=== PATIENT | female | born 1950 | race Caucasian/White ===

== ENCOUNTER 2024-07-31 09:21 | Observation (INO) ==
--- NOTE | 2024-06-25 12:29 | PAT Medication Instructions ---
Medication Instructions Date of Service June 25, 2024 Home Medications ascorbic acid (vitamin C) 500 mg tablet (Vitamin C) 500 mg PO QAM aspirin 81 mg tablet,delayed release 81 mg PO HS atorvastatin 20 mg tablet 20 mg PO QAM cephalexin 250 mg tablet 250 mg PO QAM cholecalciferol (vitamin D3) 25 mcg (1,000 unit) chewable tablet (Vitamin D3) 25 mcg PO QAM dulaglutide 0.75 mg/0.5 mL subcutaneous pen injector (Trulicity) 0.75 mg subcut WK furosemide 20 mg tablet 20 mg PO QAM insulin glargine 100 unit/mL (3 mL) subcutaneous pen (Basaglar KwikPen U-100 Insulin) 60 unit subcut HS insulin lispro 100 unit/mL subcutaneous pen (Humalog KwikPen (U-100) Insulin) 1 sliding scale dose subcut USEASDIRECTD lisinopril 10 mg tablet 10 mg PO QAM loratadine 10 mg tablet 10 mg PO QAM PRN methenamine hippurate 1 gram tablet 1 g PO BID metoprolol succinate 25 mg tablet,extended release 24 hr 25 mg PO BID nystatin 100,000 unit/gram topical powder 1 applic topical DAILY PRN omeprazole 20 mg capsule,delayed release 20 mg PO QAM ondansetron 4 mg disintegrating tablet 4 mg PO Q6H PRN prednisone 10 mg tablet 10 mg PO DIRECTED PRN spironolactone 25 mg tablet 25 mg PO BID STOP 7 days before surgery dulaglutide 0.75 mg/0.5 mL subcutaneous pen injector (Trulicity) 0.75 mg subcut WK Continue as directed prednisone 10 mg tablet 10 mg PO DIRECTED PRN(if needed) STOP taking 24 hours before surgery nystatin 100,000 unit/gram topical powder 1 applic topical DAILY PRN DO NOT take the morning of surgery ascorbic acid (vitamin C) 500 mg tablet (Vitamin C) 500 mg PO QAM cholecalciferol (vitamin D3) 25 mcg (1,000 unit) chewable tablet (Vitamin D3) 25 mcg PO QAM furosemide 20 mg tablet 20 mg PO QAM insulin lispro 100 unit/mL subcutaneous pen (Humalog KwikPen (U-100) Insulin) 1 sliding scale dose subcut USEASDIRECTD lisinopril 10 mg tablet 10 mg PO QAM loratadine 10 mg tablet 10 mg PO QAM PRN spironolactone 25 mg tablet 25 mg PO BID Take morning of surgery With a small sip of water, OTHERWISE NOTHING TO EAT OR DRINK AFTER MIDNIGHT: atorvastatin 20 mg tablet 20 mg PO QAM cephalexin 250 mg tablet 250 mg PO QAM methenamine hippurate 1 gram tablet 1 g PO BID metoprolol succinate 25 mg tablet,extended release 24 hr 25 mg PO BID omeprazole 20 mg capsule,delayed release 20 mg PO QAM ondansetron 4 mg disintegrating tablet 4 mg PO Q6H PRN(if needed) Take evening before surgery aspirin 81 mg tablet,delayed release 81 mg PO HS insulin glargine 100 unit/mL (3 mL) subcutaneous pen (Basaglar KwikPen U-100 Insulin) 60 unit subcut HS insulin lispro 100 unit/mL subcutaneous pen (Humalog KwikPen (U-100) Insulin) 1 sliding scale dose subcut USEASDIRECTD methenamine hippurate 1 gram tablet 1 g PO BID metoprolol succinate 25 mg tablet,extended release 24 hr 25 mg PO BID ondansetron 4 mg disintegrating tablet 4 mg PO Q6H PRN(if needed) spironolactone 25 mg tablet 25 mg PO BID Other Notes If you have any questions please call us at [phone] or [phone] or [phone] or [phone]
--- NOTE | 2024-07-02 10:23 | Anesthesiology Consultation ---
Date of Service July 02, 2024 Assessment & Plan (1) Encounter for pre-operative examination: - will request most recent [facility] cardiology office note Dr. Hester and await upcoming 07/15 stress test reported by patient. - will request most recent PCP office note Dr. Cline and await final clearance. - check BSG am DOS. - prednisone: patient is currently on prednisone for bilat shoulder bursitis completing medication prior to surgery. Surgeon's office made aware. - UTI: on cephalexin 500 mg tid by PCP. She states PCP wants to repeat UA 07/14/24. Surgeon's office made aware. - s/p right TKA 06/26/16 [facility]: "significant motor and sensation noted. converted to GA with MAC 3, ETT 7. Grade 1 view." SAB at L3-L4 1 attempt + PNB. - dulaglutide instructions: Patient informed at PAT visit to stop 7 days prior to surgery- voiced understanding. Patient advised to check with prescriber to see if alternative diabetic management changes recommended while holding dulaglutide- if so, patient to call back to PAT to update chart and discuss if any further preop medication instructions needed. - Outpatient joint assessment: Patient is currently scheduled for inpatient pathway. If re-evaluated and patient/surgeon requests outpatient pathway, patient is not candidate for outpatient joint program from anesthesia standpoint. Chart Review Chart Review: Pending: Refer to Additional Notes / Consult section and Patient seen in Pre Admission Testing Teaching & Discussion Pre-Anesthesia Teaching/Discussion Notes: Instructed NPO after midnight before surgery, except medications with 15 cc of water. Medication instructions provided according to the PAT guidelines. History Surgery Operation Date: 07/31/24 11:00 Proposed Procedures p Left Total Knee Arthroplasty - Derrell Moncada, Height/Weight Height: 5 ft 2 in Weight: 125.7 kg Allergies Allergy/AdvReac Type Severity Reaction Status Date / Time amoxicillin Allergy Intermediate lightheadedness Verified 07/02/24 10:40 and dizziness semaglutide [From Ozempic] AdvReac Severe nausea/vomitting/abdominal Verified 06/24/24 08:56 pain Medications Home Medications Medication Instructions Recorded Confirmed Last Taken ascorbic acid (vitamin C) 500 mg 500 mg PO QAM 06/24/24 06/24/24 Unknown tablet (Vitamin C) aspirin 81 mg tablet,delayed 81 mg PO HS 06/24/24 06/24/24 Unknown release atorvastatin 20 mg tablet 20 mg PO QAM 06/24/24 06/24/24 Unknown cephalexin 250 mg tablet 250 mg PO QAM UTI Prevention 06/24/24 06/24/24 Unknown cholecalciferol (vitamin D3) 25 25 mcg PO QAM 06/24/24 06/24/24 Unknown mcg (1,000 unit) chewable tablet (Vitamin D3) dulaglutide 0.75 mg/0.5 mL 0.75 mg subcut WK 06/24/24 06/24/24 06/21/24 subcutaneous pen injector (Trulicity) furosemide 20 mg tablet 20 mg PO QAM 06/24/24 06/24/24 Unknown insulin glargine 100 unit/mL (3 60 unit subcut HS 06/24/24 06/24/24 Unknown mL) subcutaneous pen (Basaglar KwikPen U-100 Insulin) insulin lispro 100 unit/mL 1 sliding scale dose subcut 06/24/24 06/24/24 Unknown subcutaneous pen (Humalog KwikPen USEASDIRECTD (U-100) Insulin) lisinopril 10 mg tablet 10 mg PO QAM 06/24/24 06/24/24 Unknown loratadine 10 mg tablet 10 mg PO QAM PRN seasonal allergies 06/24/24 06/24/24 Unknown methenamine hippurate 1 gram tablet 1 g PO BID 06/24/24 06/24/24 Unknown metoprolol succinate 25 mg 25 mg PO BID 06/24/24 06/24/24 Unknown tablet,extended release 24 hr nystatin 100,000 unit/gram topical 1 applic topical DAILY PRN yeast 06/24/24 06/24/24 Unknown powder infections omeprazole 20 mg capsule,delayed 20 mg PO QAM 06/24/24 06/24/24 Unknown release ondansetron 4 mg disintegrating 4 mg PO Q6H PRN n/v 06/24/24 06/24/24 Unknown tablet prednisone 10 mg tablet 10 mg PO DIRECTED PRN shoulder 06/24/24 06/24/24 Unknown bursitis spironolactone 25 mg tablet 25 mg PO BID 06/24/24 06/24/24 Unknown Additional Notes: Patient is taking cephalexin 500 mg tid started 06/27/24. Past Medical History Medical History (Updated 07/02/24 @ 10:44 by Alessia Acosta PA-C) Bursitis of shoulder bilateral - currently on prednisone Chronic back pain Degenerative disc disease Diabetes mellitus, type 2 IDDM GERD (gastroesophageal reflux disease) controlled, stable per pt History of recent steroid use d/t shoulder burisitis, finished prednisone ~06/13/24. Hyperlipidemia Hypertension controlled, stable per pt Osteoarthritis Peripheral neuropathy mild, bilateral feet Recurrent UTI last treated for an active UTI 05/31/24 & 06/13/24. started on a prevention abx from her urologist ~04/2024 that did not prevent UTI. patient is planning to get a second opinion Skipped heart beats pt unsure of name - follows with [facility] Dr Mir Ulloa. upcoming stress test Patient denies h/o stroke, seizures, heart attack, heart failure, blood clots/DVTs or blood transfusions. Exercise / Class Metabolic Activity III < 4 Walking/Shop/Light housework (ambulates with rolling walker, shortness of breath with usual activities ongoing for one year with gradual weight gain- denies chest discomfort) Past Family History Family History Other No family history of adverse response to anesthesia Past Surgical History Surgical History History of bilateral tubal ligation History of tooth extraction S/P lumbar fusion x2 Status post knee replacement right Past Anesthesia History No Hx of Anesthesia Complications and No Family Hx of Anesthesia Complications History of PONV No Hx of PONV and No Hx of Motion Sickness Social History Smoking Status: Never smoker Do You Dip or Chew Tobacco: No Hx Alcohol Use: No Hx Substance Use: No substance use type: does not use Review of Systems Patient denies chest pain, snoring, witnessed apneas, fever, chills, cough, wheezing, or palpitations. Physical Exam Vital Signs Vitals BP 130/80 P 90 TEMP 98.1 SP02 95% on RA RESP 17 Physical Patient resting comfortably in chair in no acute distress, alert and oriented, responding appropriately throughout visit Full cervical extension range of motion without pain TMD < 3 finger breadths Mallampati Score 3 Dentition: partial, denies chipped or loose teeth, caps/crowns, implants or bridges Lungs: normal respiratory effort. Good air movement, clear throughout to auscultation, no adventitious breath sounds Cardiac: regular rate and rhythm, no murmurs noted Carotid arteries: negative bruit bilat Lab Results Anesthesia Preop Results Results Anesthesia Widget: WBC 11.33 K/ul (4.8-10.8) H 07/02/24 Hgb 13.7 g/dl (12.0-16.0) 07/02/24 Hct 41.0 % (37.0-47.0) 07/02/24 Plt 252 K/uL (130-400) 07/02/24 PT 10.1 Seconds (9.0-12.0) 07/02/24 PTT 25 Seconds (21-31) 07/02/24 INR 0.9 (0.9-1.1) 07/02/24 Blood Type O Positive 07/02/24 Antibody Screen NEGATIVE 07/02/24 Testing Laboratory Results 06/03/24 SODIUM: 141 POTASSIUM: 4.3 CHLORIDE: 103 CO2: 21 BUN: 26 CREATININE: 1.2 GLUCOSE: 191 A1c: 6.3% 06/13/24 UA: small esterase, negative Electrocardiogram Date: 07/01/24 Sinus rhythm with occasional PVCs, rate 83 bpm Left axis deviation Nonspecific intraventricular block Possible anterolateral infarct, age undetermined Other Testing Chest CT 04/01/24 A few new sub 6 mm pulmonary nodules as described above. Multiple additional bilateral pulmonary nodules measuring up to approximately 10 mm are not significantly changed. coronary artery calcifications. The main pulmonary artery is dilated to 3.2 cm, which may be seen in the setting of pulmonary hypertension. Small hiatal hernia.
--- NOTE | 2024-07-30 07:09 | History & Physical Report ---
Date of Service July 30, 2024 Assessment & Plan (1) Osteoarthritis of knee: We will proceed with a left total knee arthroplasty. Postoperatively she will be started on aspirin for DVT prophylaxis and kept overnight in the hospital for postop medical management. She plans to use home health from [facility] upon discharge. History of Present Illness Chief Complaint: Osteoarthritis of the left knee. Primary Care Provider: Jasmin Guzman Marlyn Quintana is a pleasant 74-year-old female who I did a right knee replacement on in 2018. She has done well with that. Unfortunately, she is now dealing with increasing left knee pain. She has known osteoarthritis of her left knee. She has been seeing Dr. Harmon in [place] and he has been giving her injections. Unfortunately, the injections are no longer helping. That she had a conservative treatment, she has elected to proceed with a left total knee arthroplasty. Allergies Allergy/AdvReac Type Severity Reaction Status Date / Time amoxicillin Allergy Intermediate lightheadedness Verified 07/02/24 10:40 and dizziness semaglutide [From Ozempic] AdvReac Severe nausea/vomitting/abdominal Verified 06/24/24 08:56 pain Home Medications Medication Instructions Recorded Confirmed Type ascorbic acid (vitamin C) 500 mg 500 mg PO QAM 06/24/24 06/24/24 History tablet (Vitamin C) aspirin 81 mg tablet,delayed 81 mg PO HS 06/24/24 06/24/24 History release atorvastatin 20 mg tablet 20 mg PO QAM 06/24/24 06/24/24 History cephalexin 250 mg tablet 250 mg PO QAM UTI Prevention 06/24/24 06/24/24 History cholecalciferol (vitamin D3) 25 25 mcg PO QAM 06/24/24 06/24/24 History mcg (1,000 unit) chewable tablet (Vitamin D3) dulaglutide 0.75 mg/0.5 mL 0.75 mg subcut WK 06/24/24 06/24/24 History subcutaneous pen injector (Trulicity) furosemide 20 mg tablet 20 mg PO QAM 06/24/24 06/24/24 History insulin glargine 100 unit/mL (3 60 unit subcut HS 06/24/24 06/24/24 History mL) subcutaneous pen (Lobito Xiao U-100 Insulin) insulin lispro 100 unit/mL 1 sliding scale dose subcut 06/24/24 06/24/24 History subcutaneous pen (Humalog KwikPen USEASDIRECTD (U-100) Insulin) lisinopril 10 mg tablet 10 mg PO QAM 06/24/24 06/24/24 History loratadine 10 mg tablet 10 mg PO QAM PRN seasonal allergies 06/24/24 06/24/24 History methenamine hippurate 1 gram tablet 1 g PO BID 06/24/24 06/24/24 History metoprolol succinate 25 mg 25 mg PO BID 06/24/24 06/24/24 History tablet,extended release 24 hr nystatin 100,000 unit/gram topical 1 applic topical DAILY PRN yeast 06/24/24 06/24/24 History powder infections omeprazole 20 mg capsule,delayed 20 mg PO QAM 06/24/24 06/24/24 History release ondansetron 4 mg disintegrating 4 mg PO Q6H PRN n/v 06/24/24 06/24/24 History tablet prednisone 10 mg tablet 10 mg PO DIRECTED PRN shoulder 06/24/24 06/24/24 History bursitis spironolactone 25 mg tablet 25 mg PO BID 06/24/24 06/24/24 History Past Med/Surg History Problem List Encounter for pre-operative examination Osteoarthritis of knee Medical History Chronic back pain Osteoarthritis Degenerative disc disease Recurrent UTI last treated for an active UTI 05/31/24 & 06/13/24. started on a prevention abx from her urologist ~04/2024 that did not prevent UTI. patient is planning to get a second opinion GERD (gastroesophageal reflux disease) controlled, stable per pt Peripheral neuropathy mild, bilateral feet History of recent steroid use d/t shoulder burisitis, finished prednisone ~06/13/24. Diabetes mellitus, type 2 IDDM Skipped heart beats pt unsure of name - follows with [facility] Dr Mir Ulloa. upcoming stress test Hyperlipidemia Hypertension controlled, stable per pt Bursitis of shoulder bilateral - currently on prednisone Surgical History History of tooth extraction S/P lumbar fusion x2 Status post knee replacement right History of bilateral tubal ligation Family History Other No family history of adverse response to anesthesia Social History Smoking Status: Never smoker Second Hand Exposure: No; Do You Dip or Chew Tobacco: No; Tobacco Cessation Education Requested by Patient: No Hx Alcohol Use: No Hx Substance Use: No Preferred Language: Ukrainian Communication Ability: Effective Metal Coater Required: No Beliefs That Will Affect Care: None Current Living Situation: Family Current Living Situation Comment: daughter and granddaughter lives with patient Other Information That Helps Us Care for You: No Feels Safe at Home: Yes Safety Concerns: Feels Safe At This Time Assistive Devices: Cane, Glasses and Walker Assistive Devices Comment: partial upper Review of Systems All systems reviewed & are unremarkable except as noted in HPI & below. Physical Exam On physical examination of the right knee, she does have a varus deformity. She has tenderness palpation of the distal medial femoral condyle and over the medial joint line.. Constitutional WD/WN, vitals as above Eyes PERRL, conjunctivae normal, anicteric sclerae ENMT external ear and nose normal, oropharynx normal Neck trachea midline, no thyromegaly Respiratory normal respiratory effort Cardiovascular RRR, no murmur, no edema Gastrointestinal (Abdomen) normal bowel sounds, soft, nontender, no hepatosplenomegaly Psychiatric A+Ox3, euthymic affect Results & Data Results & Data Laboratory Results . Diagnostic Findings X-rays of the left knee show advanced osteoarthritis with joint space narrowing, osteophyte formation, and [id number] articulation. PG Care Time/CCT Total # of Minutes Spent Total Time Spent with Patient: Total time spent is greater than 50% in coordination of care (as documented) at patient's floor/unit and/or counseling patient: Coding Level of Care Code None Diagnoses Osteoarthritis of knee M17.10
[~2024-07-31 09:21] MED LIST: ROPIVACAINE 0.5% 5 MG/ML 30 ML VIAL ONE; ceFAZolin 2000MG 2,000 MG/15 ML SYR IV SCH
[2024-07-31] MEDS ORDERED: PROPOFOL IV EMULSION 10 MG/ML 20 ML VIAL IV ONE (10:41)
[2024-07-31] MEDS ORDERED: ONDANSETRON INJ 2 MG/ML 2 ML VIAL ONE (10:41)
[2024-07-31] MEDS ORDERED: LIDOCAINE 2% 2 ML VIAL/AMP(20MG/ML) INFIL ONE (10:41)
[2024-07-31] MEDS ORDERED: DEXAMETHASONE SOD INJ 4 MG/ML VIAL ONE (10:41)
[2024-07-31] MEDS ORDERED: fentaNYL citrate PF 100 MCG/2 ML VIAL ONE ×2 (10:42→12:48)
[2024-07-31] MEDS ORDERED: MIDAZOLAM HCL 1 MG/ML 2ML VIAL ONE (10:42)
[2024-07-31] MEDS: LR 500ML BOLUS, THEN 15ML/HR IV SCH (11:01)
[2024-07-31] MEDS: FAMOTIDINE 20 MG TAB PO SCH (11:02)
[2024-07-31] MEDS: ACETAMINOPHEN 500 MG TAB PO SCH ×2 (11:02→21:12)
[2024-07-31] MEDS: GABAPENTIN 300 MG CAP PO SCH (11:02)
[2024-07-31] MEDS: LR 60ML/HR IV SCH (11:03)
[2024-07-31] MEDS: dexAMETHasone**PF** 10 MG/ML VIAL IV SCH (11:03)
--- NOTE | 2024-07-31 11:06 | History & Physical Bridge Note ---
Date of Service July 31, 2024 History & Physical Bridge Note I have examined the patient, reviewed the History & Physical and in the interval since the performance of the History & Physical I have noted the following changes of clinical significance: no changes noted
[2024-07-31] MEDS ORDERED: HYDROmorphone INJ 1 MG/ML SYRINGE IV PRN (11:31)
[2024-07-31] MEDS ORDERED: ATROPINE SULFATE 0.1 MG/ML 10ML SYR IV PRN (11:31)
[2024-07-31] MEDS ORDERED: fentaNYL citrate PF 100 MCG/2 ML VIAL IV PRN (11:31)
[2024-07-31] MEDS ORDERED: ePHEDrine sulfate 50 MG/ML AMP IV PRN (11:31)
[2024-07-31] MEDS ORDERED: ONDANSETRON INJ 2 MG/ML 2 ML VIAL IV PRN ×2 (11:31→15:02)
[2024-07-31] MEDS: TRANEXAMIC ACID 1,000 MG **IV Pre-op IV SCH (12:02)
[2024-07-31] MEDS: ceFAZolin 3000MG 3,000 MG/72.5 ML BAG IV SCH (12:14)
[2024-07-31] MEDS: ROPIV 0.5% 246mg, Ketorolac 30mg, EPINEPHrine 0.5mg in NSS INFIL SCH (12:55)
[2024-07-31] MEDS: ORTHO JOINT ANESTHETIC ONE (12:55)
[2024-07-31] MEDS ORDERED: ROCURONIUM BROMIDE 10 MG/ML 5 ML VIAL IV ONE (12:56)
[2024-07-31] MEDS ORDERED: PHENYLEPHRINE 100MCG/ML 10ML SYR IV ONE (12:56)
[2024-07-31] MEDS ORDERED: SUGAMMADEX SODIUM 200 MG/2 ML VIAL IV ONE (13:04)
[2024-07-31] MEDS: TRANEXAMIC ACID 1,000 MG **IV Intra-op IV SCH (13:48)
--- OUTSIDE RECORDS SUMMARY | 2024-07-31 14:04 | External Medical Summary | Summary of Care ---
Author Name Unknown Organization [facility] Address [address] [place] [address] Phone [phone] Care Team Providers Care Director Data Architecture Name Role Phone Jasmin Cline MD Primary Car e Provider Encounter Details Date Type Department Care Team (Late st Contact Info) Description 07/23/2024 Telephone [facility], [place] [facility] [place], [place] [id number] Services, Scheduling [address] [place] [address] Allergies Active Allergy Reactions Criticality Noted Date Comments Semaglutide(0.25 Or 0.5mg-Dos) Nausea/vomiting 01/27/2024 Lanolin Rash Medium 03/08/2022 Fabric wool documented as of this encounter (statuses as of 07/23/2024) Medications Medication Sig Dispensed Refills Start Date End Date Status VENTOLIN HFA 108 (90 Base) MCG/ACT inhaler Inhale 2 Puffs by mouth every 4 hours as needed for Wheezing. 03/24/2019 Active atorvaSTATin (LIPITOR) 20 MG Tablet Take 1 Tablet by mouth in the morning. 03/18/2019 Active fluticasone (FLONASE) 50 MCG/ACT nasal spray Administer 1 [place] into nostril in the morning. 03/16/2019 Active aspirin 81 MG chewable tablet Take 1 Tablet by mouth at bedtime. Active Calcium Carbonate-Vitamin D 600-200 MG-UNIT Oral Tablet Take 1 Tablet by mouth in the morning. 01/03/2012 Active nystatin (NYSTOP) 543560 UNIT/GM powder Apply topically to affected area 3 times a day. Apply to breasts, abdominal fold Active Furosemide 20 MG Oral Tablet (Lasix) Take 1 Tablet by mouth in the morning. 02/08/2021 Active Lisinopril 10 MG Oral Tablet (Prinivil) Take 1 Tablet by mouth in the morning. 02/08/2021 Active Spironolactone 25 MG Oral Tablet (Aldactone) Take 1 Tablet by mouth in the morning. 02/22/2021 Active Cholecalciferol 25 MCG (1000 UT) Oral Tablet Chewable Take 1,000 Units by mouth daily. Active Metoprolol Succinate ER 25 MG Oral Tablet Extended Release 24 Hour (toPROL XL) Take 1 Tablet by mouth in the morning. 30 Tablet 11 10/17/2021 Active Famotidine 20 MG Oral Tablet (Pepcid) Take 1 Tablet by mouth 2 times a day. 60 Tablet 3 10/16/2021 Active Additional Information Patient not taking.Reported on 06/13/2024 Dulaglutide 0.75 MG/0.5ML Subcutaneous Solution Pen-injector (Scalixulicity) Inject 0.75 mg under the skin once a week. On Fridays Active Insulin Aspart 100 UNIT/ML Subcutaneous Solution Pen-injector (novoLOG) Inject 35 Units under the skin in the morning and 35 Units at noon and 35 Units in the evening. Inject with meals. Novolog scale- <151 mg/dL- 35 units 150-200 mg/dL- 36 units 201- 250 mg/dL- 37 units 251-300 mg/dL- 38 units . Active Vitamin C 1000 MG Oral Tablet Take 1 Tablet by mouth in the morning. Active Methenamine Hippurate 1 GM Oral Tablet (Hiprex) Take 1 Tablet by mouth in the morning and 1 Tablet before bedtime. 10/17/2022 Active Lidocaine 4 % External Patch (Aspercreme) Place 1 Patch over 12 hours topically on the skin daily. 30 Patch 05/13/2023 Active Insulin Glargine Solostar 100 UNIT/ML Subcutaneous Solution Pen-injector (Basaglar AishwaryaikPen) Inject under the skin. Active Metoclopramide HCl 5 MG Oral Tablet (Reglan) Take 2 Tablets by mouth every 4 hours as needed for Nausea. 30 Tablet 07/21/2024 Active Cephalexin 500 MG Oral Capsule (Keflex) Take 1 Capsule by mouth in the morning and 1 Capsule at noon and 1 Capsule in the evening and 1 Capsule before bedtime. Do all this for 5 days. 20 Capsule 07/21/2024 07/26/2024 Active documented as of this encounter (statuses as of 07/23/2024) Active Problems Problem Noted Date Diagnosed Date Acute respiratory disease due to COVID-19 virus 12/11/2022 Diastolic CHF, chronic 12/11/2022 Acute bronchitis due to Rhinovirus 10/14/2021 Dilated cardiomyopathy 10/14/2021 Diastolic congestive heart failure 10/14/2021 Acute renal failure superimp osed on stage 3a chronic kidney disease 10/14/2021 Impaired mobility and ADLs 06/08/2020 Complicated UTI (urinary tract infection) 2019 Emotional stress 12/23/2019 Cough 04/21/2019 Overview: Last Assessment & Plan: Mucinex BID as needed for cough. Push fluids. Will follow. Last Assessment & Plan: Mucinex BID as needed for cough. Push fluids. Will follow. Vitamin D deficiency 01/13/2019 Overview: Last Assessment & Plan: Continue vit D 50,000IU weekly and recheck in 8 weeks to monitor. Last Assessment & Plan: Continue vit D 50,000IU weekly and recheck in 8 weeks to monitor. Age-related osteoporosis wit hout current pathological fracture 08/14/2018 Overview: Last Assessment & Plan: Stable for oral surgery. Discussed stopping fosamax as instructed by dentist prior to procedure. Discuss potentially stopping fosamax log term depending on results of DEXA due to taking the medication for 5 years. Will follow. Last Assessment & Plan: Stable for oral surgery. Discussed stopping fosamax as instructed by dentist prior to procedure. Discuss potentially stopping fosamax log term depending on results of DEXA due to taking the medication for 5 years. Will follow. Stage 3 chronic kidney disease 08/14/2018 Overview: Last Assessment & Plan: Clinically stable. Will follow. Last Assessment & Plan: Clinically stable. Will follow. Acquired spondylolisthesis 07/01/2018 Benign essential hypertension 07/01/2018 Overview: Last Assessment & Plan: Controlled with diltiazem. Discussed eventual need to change to ACEI however will wait until BS improves and cost issues worked out with insulin. Will follow. Last Assessment & Plan: Controlled with diltiazem. Discussed eventual need to change to ACEI however will wait until BS improves and cost issues worked out with insulin. Will follow. Disease of liver 07/01/2018 Hyperlipidemia 07/01/2018 Overview: Last Assessment & Plan: Controlled. Continue lipitor daily. Will follow. Last Assessment & Plan: Controlled. Continue lipitor daily. Will follow. Idiopathic peripheral neuropathy 07/01/2018 Low back pain 07/01/2018 Nonproliferative diabetic retinopathy 07/01/2018 Overview: Last Assessment & Plan: Referred to opthalmology for f/u. Last Assessment & Plan: Referred to opthalmology for f/u. Morbid obesity 07/01/2018 Osteoarthritis of knee 07/01/2018 Peripheral venous insufficiency 07/01/2018 Type 2 diabetes mellitus wit h hyperglycemia, with long-term current use of insulin 07/01/2018 Overview: Last Assessment & Plan: Uncontrolled. Still has 2 boxes of levemir at home. Will increase to 60 U BID. We need to find a cheaper insulin as the patient continues to ration. Continue monitoring BS. Discussed red flags for emergent care. F/U with BS readings weekly. Last Assessment & Plan: Uncontrolled. Still has 2 boxes of levemir at home. Will increase to 60 U BID. We need to find a cheaper insulin as the patient continues to ration. Continue monitoring BS. Discussed red flags for emergent care. F/U with BS readings weekly. Osteoarthritis of lumbar spine 06/28/2011 documented as of this encounter (statuses as of 07/23/2024) Resolved Problems Problem Noted Date Diagnosed Date Resolved Date Acute respiratory insufficiency 12/11/2022 12/13/2022 Hypoxia 12/11/2022 12/13/2022 Intractable nausea and vomiting 06/05/2020 06/08/2020 Encounter for examination fo r normal comparison and control in clinical research program 09/16/2018 06/06/2020 Overview: DO NOT DELETE [facility] DETECT Study: Project # [id number], Dust Control Engineer: Israel Templeton, PhD. SUMMARY: Goal: Establish test characteristics (sensitivity, specificity, PPV, NPV) of a circulating tumor DNA (ctDNA)-based test for cancer. Hypothesis: Circulating tumor DNA (ctDNA) and elevated protein biomarkers (together, the marker panel) can be detected in asymptomatic individuals with early cancer. Specific Aim 1: Determine the prevalence of a positive marker panel test in a prospective clinical cohort of 10,000 asymptomatic women ages 65 to 75 years. Specific Aim 2: Determine the sensitivity, specificity, positive predictive value (PPV) and negative predictive value (NPV) of a marker panel test to identify histologically proven cancers that develop within 5-years of the marker panel evaluation. CONTACTS: During normal business hours, contact study staff at ; after hours Dust Control Engineer via the [facility] pit operator . Please contact study team before resolving/deleting from patients problem list. Study phone number: [phone]. Diagnosis changed due to Research Module. Go to Snapshot for study details. Encounter for examination fo r normal comparison and control in clinical research program 09/16/2018 07/05/2022 Overview: DO NOT DELETE - [facility] Study: Project # [id number], Dust Control Engineer: French Pierson, MS, MPH. SUMMARY: Goal: Establish test characteristics (sensitivity, specificity, PPV, NPV) of a circulating tumor DNA (ctDNA)-based test for cancer. - Hypothesis: Circulating tumor DNA (ctDNA) and elevated protein biomarkers (together, the marker panel) can be detected in asymptomatic individuals with early cancer. - Specific Aim 1: Determine the prevalence of a positive marker panel test in a prospective clinical cohort of 10,000 asymptomatic women ages 65 to 75 years. - Specific Aim 2: Determine the sensitivity, specificity, positive predictive value (PPV) and negative predictive value (NPV) of a marker panel test to identify histologically proven cancers that develop within 5-years of the marker panel evaluation. - CONTACTS: During normal business hours, contact study staff at ; after hours Dust Control Engineer via the [facility] pit operator . - Please contact study team before resolving/deleting from patients problem list. Study phone number: [phone]. Diagnosis changed due to Research Module. Go to Snapshot for study details. documented as of this encounter (statuses as of 07/23/2024) Immunizations Name Administration Dates Next Due COVID-19 mRNA, LNP-s, No Pre serve, 2-Dose Series (Moderna) 01/05/2021,12/06/2020 COVID-19, mRNA, LNP-s, PF, B ooster, 100mcg/0.5mg (Moderna) 02/18/2022,09/05/2021 Hepatitis B, 20+ yrs 08/10/2021 Pneumococcal Conjugate Vacc, 13 Valent (Prevnar) 09/18/2008 Pneumococcal Polysaccharide PPV23 (Pneumovax) 08/14/2018,08/18/2008 Seasonal Influenza Virus Vac cine, Unspecified Formulation 07/22/2018,08/23/2016,08/24/2015,10/24,07/19/2011 Seasonal Influenza, Quadriva lent, No Preserve, IM 07/03/2022 Seasonal Influenza, Trivalen t, Adjuvanted, 65+ YRS, PF, (Fluad) 08/10/2021 Varicella Zoster Vaccine (Adult) 09/22/2015 Zoster Vaccine Recombinant (Shingrix) 06/01/2019 ,03/03/2019,02/20/2019 documented as of this encounter Social History Tobacco Use Types Packs/Day Years Used Date Smoking Tobacco: Never Smokeless Tobacco: Never Alcohol Use Standard Drinks/Week Comments Not Currently 0 (1 standard drink = 0.6 oz pur e alcohol) Utilities Answer Date Recorded Do you have trouble paying y our heating, water, or electric bill? (Adult - for ages 18 years and over) Not on file 04/21/2024 Is your family able to pay t he heat, water, or electric bill? (Household - for ages 0-17 years) Not on file 04/21/2024 Does your family have access to good internet? (Household - for ages 0-17 years) Not on file 04/21/2024 Social Connections Answer Date Recorded How often do you feel lonely or isolated from those around you? (Adult - for ages 18 years and over) Not on file 04/21/2024 Sex and Gender Information Value Date Recorded Sex Assigned at Not on file Gender Identity Not on file Sexual Orientation Not on file Job Start Date Occupation Industry Not on file Not on file Not on file documented as of this encounter Functional Status Functional Status Response Date of Assess ment Are you deaf or do you have serious difficulty h earing? No 12/11/2022 Are you blind or do you have serious difficulty seeing, even when wearing glasses? No 12/11/2022 Do you have serious difficul ty walking or climbing stairs? (5 years old or older) Yes 12/11/2022 Do you have difficulty dress ing or bathing? (5 years old or older) No 12/11/2022 Because of a physical, menta l, or emotional condition, do you have difficulty doing errands alone such as visiting a doctor s office or shopping? (15 years old or older) No 12/11/19 Cognitive Status Response Date of Assessm ent Because of a physical, menta l, or emotional condition, do you have serious difficulty concentrating, remembering, or making decisions? (5 years old or older) No 12/11/2022 documented as of this encounter Miscellaneous Notes * Telephone Encounter - Aria Alvarado OSA - 07/23/2024 1:09 PM EDT Added task. documented in this encounter Plan of Treatment Upcoming Encounters Date Type Department Care Team (Late st Contact Info) Description 08/19/2024 8:30 AM EDT [facility] [address] [place] [address] Pb Harding PA-C [address] [place] [address] Health Maintenance Due Date Last Done Comments Depression Screening 1962 CKD PHOS USE SMARTSET 91087 01/20/1968 Diabetic Foot Exam 01/20/1968 Hepatitis C Screening 01/20/1968 DTap/Tdap Vaccines (1 - Tdap) 1969 Cologuard 1995 Colonoscopy 1995 Colorectal Cancer Screening 1995 Fecal Occult Blood Test 1995 Sigmoidoscopy 1995 *BISPHONATE OR OTHER ACCEPTABLE MEDICATION NEEDED FOR OSTEOPOROSIS (REFER TO SMARTSET #1146) 05/22/2020 Hepatitis B Vaccine (2 of 3 - 19+ 3-dose series) 09/07/2021 08/10/2021 DXA Scan 08/15/2023 08/15/2021, 08/20/2018 Mammogram 09/13/2023 09/13/2022, 09/04, 09/12/2021, Additional history exists COVID-19 Vaccine ( season) 2024 02/18/2022, 09/05/2021, 01/05/2021, Additional history exists Influenza Vaccine (FLU shot) (#1) 2024 07/03/2022, 07/03/2022, 08/10/2021, Additional history exists HbA1c 12/04/2024 06/03/2024, 06/0 02/2024, 01/23/2024, Additional history exists GFR 01/18/2025 07/21/2024, 05/06, 04/07/2024, Additional history exists Albumin/Creatinine Ratio 04/07/202504/07/2 024, 10/03/2023, 02/23/2023, Additional history exists Diabetic Eye Exam 05/18/2025 05/18/2024, , 11/06/2023, Additional history exists CKD HGB USE SMARTSET 29229 07/21/202507/21, 07/21/2024, 04/07/2024, Additional history exists Lipid Panel 06/03/2029 06/03/2024, 06/0 02/2024, 10/03/2023, Additional history exists Pneumococcal Vaccine: 65+ Years Completed 08/14/2018, 09/18/2008, 08/18/2008 Zoster Vaccines Completed 06/01/2019, 02/04, 02/20/2019, Additional history exists VITAMIN D LEVEL ONCE IN A LIFETIME-USE SMARTSET# 41631 Completed 06/03/2024, 06/04/2023, 08/07/2022, Additional history exists HPV (Gardasil) Vaccine Aged Out No lo nger eligible based on patient's age to complete this topic MENINGOCOCCAL (MENACTRA/MENVEO) Aged Out No longer eligible based on patient's age to complete this topic documented as of this encounter Medical Devices Not on filedocumented as of this encounter Advance Directives * Full Code (Latest Code Status on File) Date Activated Date Inactivated Comments 12/12/2022 6:42 AM 12/13/2022 3:48 PM This order ref lects the patients wishes and were consensually agreed upon. Question Answer Comments Discussion of Advance Directives occurred with: Patient Does the patient have a Living Will? Yes, not cu rrently available Does the patient have Health Care Power of Manager Biostatistics? Yes, not currently available * Full Code Date Activated Date Inactivated Comments 12/12/2022 12:28 AM 12/12/2022 6:42 AM This order re flects the patients wishes and were consensually agreed upon. Question Answer Comments Discussion of Advance Direct agapito occurred with: Not Discussed due to patient's condition Does the patient have a Living Will? No Does the patient have Health Care Power of Manager Biostatistics? No * Full Code Date Activated Date Inactivated Comments 12/12/2022 12:13 AM 12/12/2022 12:28 AM This order r eflects the patients wishes and were consensually agreed upon. Question Answer Comments Discussion of Advance Direct agapito occurred with: Not Discussed due to patient's condition Does the patient have a Living Will? No Does the patient have Health Care Power of Manager Biostatistics? No * Full Code Date Activated Date Inactivated Comments 10/14/2021 5:33 PM 10/16/2021 4:43 PM This order reflects the patients wishes and were consensually agreed upon. Question Answer Comments Discussion of Advance Directives occurred with: Patient Does the patient have a Living Will? Yes, not cu rrently available Does the patient have Health Care Power of Manager Biostatistics? Yes, not currently available * Full Code Date Activated Date Inactivated Comments 06/05/2020 2:40 PM 06/08/2020 5:16 PM This order ref lects the patients wishes and were consensually agreed upon. Question Answer Comments Discussion of Advance Directives occurred with: Patient Does the patient have a Living Will? No Does the patient have Health Care Power of Attor mauro? No Care Teams Director Data Architecture Relationship Specialty Start Date End Date Jasmin Cline MD [employer] [place] [id number] [place] [phone] PCP - General Internal Medicine 05/20/20 documented as of this encounter
--- OUTSIDE RECORDS SUMMARY | 2024-07-31 14:05 | External Medical Summary ---
Author Name Unknown Address Unknown Organization K1G:[facility] - [address] [facility] [address] Laboratory Report Ordering Provider Test Date Status PRESLEY TORRES 07/21/2024 12:23:20 Final Observation Date Value Abnormality Reference (Units ) Status BUN 07/21/2024 12:23:20 16 6-20 (mg/dL) Final Creatinine 07/21/2024 12:23:20 1.4 Above high normal 0.5-1.0 (mg/dL) Final Glomerular filtration rate/1.73 sq M.predicted [Volume Rate/Area] in Serum, Plasma or Blood by Creatinine-based formula (CKD-EPI) 07/21/2024 12:23:20 39 Below low normal >=60 (mL/min) Final eGFR is calculated based on the CKD-EPI 2020 equation. Sodium 07/21/2024 12:23:20 142 135-146 (m mol/L) Final Potassium 07/21/2024 12:23:20 5.4 Above high normal 3. 5-5.1 (mmol/L) Final Cl 07/21/2024 12:23:20 109 Above high normal 98 -107 (mmol/L) Final CO2 07/21/2024 12:23:20 26 22-32 (mmo l/L) Final Anion gap 07/21/2024 12:23:20 7 7-15 (mmol /L) Final Glucose 07/21/2024 12:23:20 135 Above high normal 70 -120 (mg/dL) Final Albumin 07/21/2024 12:23:20 3.8 3.5-4.4 (g /dL) Final AST (Aspartate aminotransferase) 07/21/2024 12:23:20 29 10-35 (U/L) Fin al Alk Phos 07/21/2024 12:23:20 65 35-130 (U/ L) Final Bilirubin, Total 07/21/2024 12:23:20 1.1 <=1 .2 (mg/dL) Final Calcium 07/21/2024 12:23:20 8.7 8.4-10.2 ( mg/dL) Final Protein 07/21/2024 12:23:20 6.9 6.0-8.3 (g /dL) Final ALT (Alanine aminotransferase) 07/21/2024 12:23:20 26 10-35 (U/L) Nura blas Performing Location [facility] - [facility] [address]
--- OUTSIDE RECORDS SUMMARY | 2024-07-31 14:05 | External Medical Summary ---
Author Name Unknown Address Unknown Organization K1G:[facility] - [address] [facility] [address] Laboratory Report Ordering Provider Test Date Status PRESLEY TORRES 07/21/2024 12:23:20 Final Observation Date Value Abnormality Reference (Units ) Status SYNC LEUKOCYTES IN BLOOD BY AUTOMATED COUNT 07/21/2024 12:23:20 10.51 4.00-10.80 (K/uL) Final Segs 07/21/2024 12:23:20 75.5 Above high normal 40.0-75.0 (%) Final Lymphs % 07/21/2024 12:23:20 12.0 Below low normal 18.0-42.0 (%) Final Monos 07/21/2024 12:23:20 10.6 1.0-11.0 (%) Final Eosinophils 07/21/2024 12:23:20 1.7 0.0-6.0 (%) Final Basos 07/21/2024 12:23:20 0.2 0.0-2.0 (%) Final Absolute Segs 07/21/2024 12:23:20 7.94 Above high normal 1.80-7.70 (K/uL) Final Lymphs, absolute 07/21/2024 12:23:20 1.26 1.00-4.80 (K/ul) Final Monos, Abs 07/21/2024 12:23:20 1.11 Above high normal 0.00-1.10 (K/uL) Final Eos, Abs 07/21/2024 12:23:20 0.18 0.00-0.70 (K/uL) Final Basos, Abs 07/21/2024 12:23:20 0.02 0.00-0.20 (K/uL) Final Performing Location [facility]ORY [facility] - [address] [facility] [address]
--- OUTSIDE RECORDS SUMMARY | 2024-07-31 14:05 | External Medical Summary ---
Author Name Unknown Address Unknown Organization K1G:[facility] - [address] [facility] [address] Laboratory Report Ordering Provider Test Date Status PRESLEY TORRES 07/21/2024 11:59:48 Final Observation Date Value Abnormality Reference (Units ) Status Glucose Point of Care 07/21/2024 11:59:48 135 Above high normal 70-120 (mg/dL) Final Performing Location [facility] [address] [facility] [address]
--- OUTSIDE RECORDS SUMMARY | 2024-07-31 14:05 | External Medical Summary | Summary of Care ---
Author Name Unknown Organization [facility] Address [address] [place] [address] Phone [phone] Care Team Providers Care Parking Assistant Name Role Phone Jasmin Cline MD Primary Car e Provider Reason for Visit * Reason Comments Outpatient Testing Encounter Details Date Type Department Care Team ([facility] st Contact Info) Description 07/17/2024 11:00 AM EDT Laboratory Laboratory Patient Service [address] [id number] [address] Kidney disease, chronic, stage III (GFR 30-59 ml/min) (FORMERLY [facility]) Allergies Active Allergy Reactions Criticality Noted Date Comments Semaglutide(0.25 Or 0.5mg-Dos) Nausea/vomiting 01/27/2024 Lanolin Rash Medium 03/08/2022 Fabric wool documented as of this encounter (statuses as of 07/17/2024) Medications Medication Sig Dispensed Refills Start Date End Date Status VENTOLIN HFA 108 (90 Base) MCG/ACT inhaler Inhale 2 Puffs by mouth every 4 hours as needed for Wheezing. 03/24/2019 Active atorvaSTATin (LIPITOR) 20 MG Tablet Take 1 Tablet by mouth in the morning. 03/18/2019 Active fluticasone (FLONASE) 50 MCG/ACT nasal spray Administer 1 [place] into nostril in the morning. 03/16/2019 Active aspirin 81 MG chewable tablet Take 1 Tablet by mouth at bedtime. Active Calcium Carbonate-Vitamin D 600-200 MG-UNIT Oral Tablet Take 1 Tablet by mouth in the morning. 01/03/2012 Active nystatin (NYSTOP) 436123 UNIT/GM powder Apply topically to affected area [...] 06/13/2024 Dulaglutide 0.75 MG/0.5ML Subcutaneous Solution Pen-injector ([employer] Inject 0.75 mg under the skin once [...] (Basaglar AishwaryaikPen) Inject under the skin. Active documented as of this encounter (statuses as of 07/17/2024) Active Problems Problem Noted Date Diagnosed Date [...] as of this encounter (statuses as of 07/17/2024) Resolved Problems Problem Noted Date Diagnosed Date Resolved Date Acute respiratory insufficiency 12/11/2022 12/13/2022 Hypoxia 12/11/2022 12/13/2022 Intractable nausea and vomiting 06/05/2020 06/08/2020 Encounter for examination fo r normal comparison and control in clinical research program 09/16/2018 06/06/2020 Overview: DO NOT DELETE [facility] DETECT Study: Project # [id number], Parquetry Floor Layer: Israel Templeton, PhD. SUMMARY: Goal: Establish test [...] contact study staff at ; after hours Parquetry Floor Layer via the [facility] hospital kettle fry cook operator . Please contact study team before resolving/deleting from patients problem list. Study phone number: [phone]. Diagnosis changed due to Research Module. Go to [employer] for study details. Encounter for examination fo r normal comparison and control in clinical research program 09/16/2018 07/05/2022 Overview: DO NOT DELETE - [facility] Study: Project # [id number], Parquetry Floor Layer: French Pierson, MS, MPH. SUMMARY: Goal: Establish [...] contact study staff at ; after hours Parquetry Floor Layer via the [facility] kettle fry cook operator . - Please contact study team before resolving/deleting from patients problem list. Study phone number: [phone]. Diagnosis changed due to Research Module. Go to [employer] for study details. documented as of this encounter (statuses as of 07/17/2024) Immunizations Name Administration Dates Next Due COVID-19 [...] (15 years old or older) No 12/11/19 23 Cognitive Status Response Date of Assessm ent Because of a physical, menta l, or emotional condition, do you have serious difficulty concentrating, remembering, or making decisions? (5 years old or older) No 12/11/2022 documented as of this encounter Plan of Treatment Upcoming Encounters Date Type Department Care Team (Late st Contact Info) Description 08/19/2024 8:30 AM EDT [facility] [address] [place] [address] Pb Harding PA-C [address] [place] [address] Pending Results Name Type Priority Associated Diagnoses Date /Time URINALYSIS, REFLEX TO CULTURE (NOT FOR NEUTROPENIC PATIENTS) Lab Routine Kidney disease, chronic, stage III (GFR 30-59 ml/min) ([facility]) 07/17/2024 10:59 AM EDT URINALYSIS, REFLEX TO CULTURE (CUP ONLY) Lab Routine Kidney disease, chronic, stage III (GFR 30-59 ml/min) ([facility]) 07/17/2024 10:59 AM EDT URINALYSIS, REFLEX TO CULTURE Lab Routine Kidney disease, chronic, stage III (GFR 30-59 ml/min) ([facility]) 07/17/2024 10:59 AM EDT Health Maintenance Due Date Last Done Comments Depression Screening 1962 CKD PHOS USE SMARTSET 64186 01/20/1968 Diabetic Foot Exam 01/20/1968 Hepatitis C [...] 2024 07/03/2022, 07/03/2022, 08/10/2021, Additional history exists GFR 12/04/2024 06/03/2024, 06/0 02/2024, 01/23/2024, Additional history exists HbA1c 12/04/2024 06/03/2024, 06/0 02/2024, 01/23/2024, Additional history exists Albumin/Creatinine Ratio 04/07/2025 024, 10/03/2023, 02/23/2023, Additional history exists CKD HGB USE SMARTSET 65398 04/07/202504/07, 04/07/2024, 10/03/2023, Additional history exists Diabetic Eye Exam 05/18/2025 05/18/2024, , 11/06/2023, Additional history exists Lipid Panel 06/03/2029 06/03/2024, 06/0 02/2024, 10/03/2023, Additional history exists Pneumococcal Vaccine: 65+ Years Completed 08/14/2018, 09/18/2008, 08/18/2008 Zoster Vaccines Completed 06/01/2019, 02/04, 02/20/2019, Additional history exists VITAMIN D LEVEL ONCE IN A LIFETIME-USE SMARTSET# [id number] Completed 06/03/2024, 06/04/2023, 08/07/2022, Additional history exists HPV (Gardasil) Vaccine Aged Out No lo nger eligible based on patient's age to complete this topic MENINGOCOCCAL (MENACTRA/MENVEO) Aged Out No longer eligible based on patient's age to complete this topic documented as of this encounter Medical Devices Not on filedocumented as of this encounter Visit Diagnoses Diagnosis Kidney disease, chronic, stage III (GFR 30-59 ml/min) (HCC) Chronic kidney disease, Stage III (moderate) documented in this encounter Advance Directives * Full Code [...] the patient have Health Care Power of Sales Department Supervisor? Yes, not currently available * Full Code Date Activated Date Inactivated Comments 12/12/2022 12:28 AM 12/12/2022 6:42 AM This order re flects the patients wishes and were consensually agreed upon. Question Answer Comments Discussion of Advance Direct agapito occurred with: Not Discussed due to patient's condition Does the patient have a Living Will? No Does the patient have Health Care Power of Sales Department Supervisor? No * Full Code Date Activated Date Inactivated Comments 12/12/2022 12:13 AM 12/12/2022 12:28 AM This order r eflects the patients wishes and were consensually agreed upon. Question Answer Comments Discussion of Advance Direct agapito occurred with: Not Discussed due to patient's condition Does the patient have a Living Will? No Does the patient have Health Care Power of Sales Department Supervisor? No * Full Code Date Activated Date Inactivated Comments 10/14/2021 5:33 PM 10/16/2021 4:43 PM This order reflects the patients wishes and were consensually agreed upon. Question Answer Comments Discussion of Advance Directives occurred with: Patient Does the patient have a Living Will? Yes, not cu rrently available Does the patient have Health Care Power of Sales Department Supervisor? Yes, not currently available * Full Code Date Activated Date Inactivated Comments 06/05/2020 2:40 PM 06/08/2020 5:16 PM This order ref lects the patients wishes and were consensually agreed upon. Question Answer Comments Discussion of Advance Directives occurred with: Patient Does the patient have a Living Will? No Does the patient have Health Care Power of Attor mauro? No Care Teams Parking Assistant Relationship Specialty Start Date End Date Jasmin Cline MD [facility] [place] [address] [place] [phone] PCP - General Internal Medicine 05/20/20 documented as of this encounter
--- OUTSIDE RECORDS SUMMARY | 2024-07-31 14:05 | External Medical Summary | Summary of Care ---
Author Name Unknown Organization [facility] Address [address] [facility] [address] Phone [phone] Care Team Providers Care Food And Beverage Operations Manager Name Role Phone Jasmin Cline MD Primary Car e Provider Reason for Visit * Reason Onset Date Comments [facility]: Maintenance 07/22/2024 Encounter Details Date Type Department Care Team (Late st Contact Info) Description 07/22/2024 Telephone [facility], [facility] [address] [facility] [place] [phone] Sayra Chung, SURVEILLANCE DUAL RATE OFFICER [address] [facility] [place] [address] [facility]: Maintenance Allergies Active Allergy Reactions Criticality Noted Date Comments Semaglutide(0.25 Or 0.5mg-Dos) Nausea/vomiting 01/27/2024 Lanolin Rash Medium 03/08/2022 Fabric wool documented as of this encounter (statuses as of 07/22/2024) Medications Medication Sig Dispensed Refills Start Date End Date Status VENTOLIN HFA 108 (90 Base) MCG/ACT inhaler Inhale 2 Puffs by mouth every 4 hours as needed for Wheezing. 03/24/2019 Active atorvaSTATin (LIPITOR) 20 MG Tablet Take 1 Tablet by mouth in the morning. 03/18/2019 Active fluticasone (FLONASE) 50 MCG/ACT nasal spray Administer 1 [place] into nostril in the morning. 03/16/2019 Active aspirin 81 MG chewable tablet Take 1 Tablet by mouth at bedtime. Active Calcium Carbonate-Vitamin D 600-200 MG-UNIT Oral Tablet Take 1 Tablet by mouth in the morning. 01/03/2012 Active nystatin (NYSTOP) 258542 UNIT/GM powder Apply topically to affected area [...] 06/13/2024 Dulaglutide 0.75 MG/0.5ML Subcutaneous Solution Pen-injector (Solarmassulicity) Inject 0.75 mg under the skin once [...] as of this encounter (statuses as of 07/22/2024) Active Problems Problem Noted Date Diagnosed Date [...] as of this encounter (statuses as of 07/22/2024) Resolved Problems Problem Noted Date Diagnosed Date Resolved Date Acute respiratory insufficiency 12/11/2022 12/13/2022 Hypoxia 12/11/2022 12/13/2022 Intractable nausea and vomiting 06/05/2020 06/08/2020 Encounter for examination fo r normal comparison and control in clinical research program 09/16/2018 06/06/2020 Overview: DO NOT DELETE [facility] DETECT Study: Project # [id number], Career Development Engineer: Israel Templeton, PhD. SUMMARY: Goal: Establish [...] contact study staff at ; after hours Career Development Engineer via the [facility] hospital muffle operator . Please contact study team before resolving/deleting from patients problem list. Study phone number: [phone]. Diagnosis changed due to Research Module. Go to [employer] for study details. Encounter for examination fo r normal comparison and control in clinical research program 09/16/2018 07/05/2022 Overview: DO NOT DELETE [facility] DETECT Study: Project # [id number], Career Development Engineer: French Pierson, MS, MPH. SUMMARY: Goal: [...] contact study staff at ; after hours Career Development Engineer via the [facility] hospital muffle operator . - Please contact study team before resolving/deleting from patients problem list. Study phone number: [phone]. Diagnosis changed due to Research Module. Go to [employer] for study details. documented as of this encounter (statuses as of 07/22/2024) Immunizations Name Administration Dates Next Due COVID-19 [...] encounter Miscellaneous Notes * Telephone Encounter - Sayra Chung LPN - 07/22/2024 10:28 AM EDT Lilian Mccall was referred as a potential candidate for enrollment for [facility]. A review of this chart was completed and: Lilian meets criteria for [facility]. Jump to Initiation Referring care team was notified via : [employer] [facility] communication documented in this encounter Plan of Treatment Upcoming Encounters Date Type Department Care Team (Late st Contact Info) Description 08/19/2024 8:30 AM EDT Office Visit Orthopaedics, [facility] [address] [place] [address] Pb Harding PA-C [address] [place] [address] Health Maintenance Due Date Last Done Comments Depression Screening 1962 CKD PHOS USE SMARTSET 77160 01/20/1968 Diabetic Foot Exam 01/20/1968 Hepatitis C [...] 01/23/2024, Additional history exists GFR 01/18/2025 07/21/2024, 07/3 11/2023, 04/07/2024, Additional history exists Albumin/Creatinine Ratio 04/07/202504/07/2 024, 10/03/2023, 02/23/2023, Additional history exists Diabetic Eye Exam 05/18/2025 05/18/2024, , 11/06/2023, Additional history exists CKD HGB USE SMARTSET 10868 07/21/202507/21, 07/21/2024, 04/07/2024, Additional history exists Lipid Panel 06/03/2029 06/03/2024, 06/0 02/2024, 10/03/2023, Additional history exists Pneumococcal Vaccine: 65+ Years Completed 08/14/2018, 09/18/2008, 08/18/2008 Zoster Vaccines Completed 06/01/2019, 02/04, 02/20/2019, Additional history exists VITAMIN D LEVEL ONCE IN A LIFETIME-USE SMARTSET# 28750 Completed 06/03/2024, 06/04/2023, 08/07/2022, Additional history exists [...] the patient have Health Care Power of Yard General Car Supervisor? Yes, not currently available * Full Code Date Activated Date Inactivated Comments 12/12/2022 12:28 AM 12/12/2022 6:42 AM This order re flects the patients wishes and were consensually agreed upon. Question Answer Comments Discussion of Advance Direct agapito occurred with: Not Discussed due to patient's condition Does the patient have a Living Will? No Does the patient have Health Care Power of Yard General Car Supervisor? No * Full Code Date Activated Date Inactivated Comments 12/12/2022 12:13 AM 12/12/2022 12:28 AM This order r eflects the patients wishes and were consensually agreed upon. Question Answer Comments Discussion of Advance Direct agapito occurred with: Not Discussed due to patient's condition Does the patient have a Living Will? No Does the patient have Health Care Power of Yard General Car Supervisor? No * Full Code Date Activated Date Inactivated Comments 10/14/2021 5:33 PM 10/16/2021 4:43 PM This order reflects the patients wishes and were consensually agreed upon. Question Answer Comments Discussion of Advance Directives occurred with: Patient Does the patient have a Living Will? Yes, not cu rrently available Does the patient have Health Care Power of Yard General Car Supervisor? Yes, not currently available * Full Code Date Activated Date Inactivated Comments 06/05/2020 2:40 PM 06/08/2020 5:16 PM This order ref lects the patients wishes and were consensually agreed upon. Question Answer Comments Discussion of Advance Directives occurred with: Patient Does the patient have a Living Will? No Does the patient have Health Care Power of Attor mauro? No Care Teams Food And Beverage Operations Manager Relationship Specialty Start Date End Date Jasmin Cline MD [facility] [place] [address] [place] [phone] PCP - General Internal Medicine 05/20/20 documented as of this encounter
--- OUTSIDE RECORDS SUMMARY | 2024-07-31 14:05 | External Medical Summary | Summary of Care ---
Author Name Unknown Organization [facility] Address [address] [facility] [place] [address] Phone [phone] Care Team Providers Care Master Automotive Technician Name Role Phone Jasmin Cline MD Primary Car e Provider Encounter Details Date Type Department Care Team (Late st Contact Info) Description 07/22/2024 Population Health External Data Unspecified Department Allergies Active Allergy Reactions Criticality Noted Date [...] (FLONASE) 50 MCG/ACT nasal spray Administer 1 [place] into nostril in the morning. 03/16/2019 Active aspirin 81 MG chewable tablet Take 1 Tablet by mouth at bedtime. Active Calcium Carbonate-Vitamin D 600-200 MG-UNIT Oral Tablet Take 1 Tablet by mouth in the morning. 01/03/2012 Active nystatin (NYSTOP) 247213 UNIT/GM powder Apply topically to affected area [...] 06/13/2024 Dulaglutide 0.75 MG/0.5ML Subcutaneous Solution Pen-injector (Nasuniulicity) Inject 0.75 mg under the skin once [...] Solostar 100 UNIT/ML Subcutaneous Solution Pen-injector (Basaglar KwikPen) Inject under the skin. Active Metoclopramide HCl [...] 8 weeks to monitor. Age-related osteoporosis wit dionicio current pathological fracture 08/14/2018 Overview: Last Assessment [...] program 09/16/2018 06/06/2020 Overview: DO NOT DELETE [facility] DETECT Study: Project # [id number], Scrap Stripper Hand: Israel Templeton, PhD. SUMMARY: Goal: Establish test [...] contact study staff at ; after hours Scrap Stripper Hand via the [facility] dinkey operator slate . Please contact study team before resolving/deleting from patients problem list. Study phone number: [phone]. Diagnosis changed due to Research Module. Go to [employer] for study details. Encounter for examination fo r normal comparison and control in clinical research program 09/16/2018 07/05/2022 Overview: DO NOT DELETE - [facility] Study: Project # [id number], Scrap Stripper Hand: French Pierson, MS, MPH. SUMMARY: Goal: Establish [...] contact study staff at ; after hours Scrap Stripper Hand via the [facility] dinkey operator slate . - Please contact study team before resolving/deleting from patients problem list. Study phone number: [phone]. Diagnosis changed due to Research Module. Go [...] Description 08/19/2024 8:30 AM EDT [facility] [address] [place] [address] Pb Harding PA-C [address] [place] [address] Health Maintenance Due Date Last Done Comments Depression Screening 1962 CKD PHOS USE SMARTSET 44518 01/20/1968 Diabetic Foot Exam 01/20/1968 Hepatitis C [...] 05/06, 04/07/2024, Additional history exists Albumin/Creatinine Ratio 04/07/2025 024, 10/03/2023, 02/23/2023, Additional history exists Diabetic Eye Exam 05/18/2025 05/18/2024, , 11/06/2023, Additional history exists CKD HGB USE SMARTSET 54575 07/21/202507/21, 07/21/2024, 04/07/2024, Additional history exists Lipid Panel 06/03/2029 06/03/2024, 06/0 02/2024, 10/03/2023, Additional history exists Pneumococcal Vaccine: 65+ Years Completed 08/14/2018, 09/18/2008, 08/18/2008 Zoster Vaccines Completed 06/01/2019, 02/04, 02/20/2019, Additional history exists VITAMIN D LEVEL ONCE IN A LIFETIME-USE SMARTSET# 22386 Completed 06/03/2024, 06/04/2023, 08/07/2022, Additional history exists [...] the patient have Health Care Power of Aerial Tram Operator? Yes, not currently available * Full Code Date Activated Date Inactivated Comments 12/12/2022 12:28 AM 12/12/2022 6:42 AM This order re flects the patients wishes and were consensually agreed upon. Question Answer Comments Discussion of Advance Direct agapito occurred with: Not Discussed due to patient's condition Does the patient have a Living Will? No Does the patient have Health Care Power of Aerial Tram Operator? No * Full Code Date Activated Date Inactivated Comments 12/12/2022 12:13 AM 12/12/2022 12:28 AM This order r eflects the patients wishes and were consensually agreed upon. Question Answer Comments Discussion of Advance Direct agapito occurred with: Not Discussed due to patient's condition Does the patient have a Living Will? No Does the patient have Health Care Power of Aerial Tram Operator? No * Full Code Date Activated Date Inactivated Comments 10/14/2021 5:33 PM 10/16/2021 4:43 PM This order reflects the patients wishes and were consensually agreed upon. Question Answer Comments Discussion of Advance Directives occurred with: Patient Does the patient have a Living Will? Yes, not cu rrently available Does the patient have Health Care Power of Aerial Tram Operator? Yes, not currently available * Full Code Date Activated Date Inactivated Comments 06/05/2020 2:40 PM 06/08/2020 5:16 PM This order ref lects the patients wishes and were consensually agreed upon. Question Answer Comments Discussion of Advance Directives occurred with: Patient Does the patient have a Living Will? No Does the patient have Health Care Power of Attor mauro? No Care Teams Master Automotive Technician Relationship Specialty Start Date End Date Jasmin Cline MD [facility] [place] [phone] PCP - General Internal Medicine 05/20/20 documented as of this encounter
--- OUTSIDE RECORDS SUMMARY | 2024-07-31 14:05 | External Medical Summary | Summary of Care ---
Author Name Unknown Organization [facility] Address [address] [place] [address] Phone [phone] Care Team Providers Care Piece Presser Name Role Phone Jasmin Cline MD Primary Car e Provider Reason for Visit * Reason Onset Date Comments [facility]: Engagement 07/22/2024 Encounter Details Date Type Department Care Team (Late st Contact Info) Description 07/22/2024 Telephone [facility], [place] [address] [place], [place] [address]JHO[place] [phone] Services, Scheduling [address] [place] [address] [facility]: Engagement Allergies Active Allergy Reactions Criticality Noted Date [...] (FLONASE) 50 MCG/ACT nasal spray Administer 1 [place] into nostril in the morning. 03/16/2019 Active aspirin 81 MG chewable tablet Take 1 Tablet by mouth at bedtime. Active Calcium Carbonate-Vitamin D 600-200 MG-UNIT Oral Tablet Take 1 Tablet by mouth in the morning. 01/03/2012 Active nystatin (NYSTOP) 078430 UNIT/GM powder Apply topically to affected area [...] 06/13/2024 Dulaglutide 0.75 MG/0.5ML Subcutaneous Solution Pen-injector (SomaLogic) Inject 0.75 mg under the skin once [...] program 09/16/2018 06/06/2020 Overview: DO NOT DELETE Ronald Cambiatta ANA Study: Project # [id number], Marketing Administrative Assistant: Israel Templeton, PhD. SUMMARY: Goal: Establish test [...] contact study staff at ; after hours Marketing Administrative Assistant via the [facility] flange machine operator . Please contact study team before resolving/deleting from patients problem list. Study phone number: [phone]. Diagnosis changed due to Research Module. Go to Snapshot for study details. Encounter for examination fo r normal comparison and control in clinical research program 09/16/2018 07/05/2022 Overview: DO NOT DELETE - Ronald Cambiatta DETECT Study: Project # [id number], Marketing Administrative Assistant: French Pierson, MS, MPH. SUMMARY: Goal: Establish [...] contact study staff at ; after hours Marketing Administrative Assistant via the [facility] flange machine operator . - Please contact study team before resolving/deleting from patients problem list. Study phone number: [phone]. Diagnosis changed due to Research Module. Go [...] Telephone Encounter - Aria Alvarado OSA - 07/22/2024 2:33 PM EDT Pt is to have knee surgery next week, would like a call back the of August. documented in this encounter Plan of Treatment Upcoming Encounters Date Type Department Care Team (Late st Contact Info) Description 08/19/2024 8:30 AM EDT Office Visit Orthopaedics, [facility] [address] [place] [address] Pb Harding PA-C [address] [place] [address] Health Maintenance Due Date Last Done Comments Depression Screening 1962 CKD PHOS USE SMARTSET 15380 01/20/1968 Diabetic Foot Exam 01/20/1968 Hepatitis C [...] Additional history exists CKD HGB USE SMARTSET 41787 07/21/202507/21, 07/21/2024, 04/07/2024, Additional history exists Lipid Panel 06/03/2029 06/03/2024, 06/0 02/2024, 10/03/2023, Additional history exists Pneumococcal Vaccine: 65+ Years Completed 08/14/2018, 09/18/2008, 08/18/2008 Zoster Vaccines Completed 06/01/2019, 02/04, 02/20/2019, Additional history exists VITAMIN D LEVEL ONCE IN A LIFETIME-USE SMARTSET# [id number] Completed 06/03/2024, 06/04/2023, 08/07/2022, Additional history exists [...] the patient have Health Care Power of Wire Bound Box Machine Helper? Yes, not currently available * Full Code Date Activated Date Inactivated Comments 12/12/2022 12:28 AM 12/12/2022 6:42 AM This order re flects the patients wishes and were consensually agreed upon. Question Answer Comments Discussion of Advance Direct agapito occurred with: Not Discussed due to patient's condition Does the patient have a Living Will? No Does the patient have Health Care Power of Wire Bound Box Machine Helper? No * Full Code Date Activated Date Inactivated Comments 12/12/2022 12:13 AM 12/12/2022 12:28 AM This order r eflects the patients wishes and were consensually agreed upon. Question Answer Comments Discussion of Advance Direct agapito occurred with: Not Discussed due to patient's condition Does the patient have a Living Will? No Does the patient have Health Care Power of Wire Bound Box Machine Helper? No * Full Code Date Activated Date Inactivated Comments 10/14/2021 5:33 PM 10/16/2021 4:43 PM This order reflects the patients wishes and were consensually agreed upon. Question Answer Comments Discussion of Advance Directives occurred with: Patient Does the patient have a Living Will? Yes, not cu rrently available Does the patient have Health Care Power of Wire Bound Box Machine Helper? Yes, not currently available * Full Code Date Activated Date Inactivated Comments 06/05/2020 2:40 PM 06/08/2020 5:16 PM This order ref lects the patients wishes and were consensually agreed upon. Question Answer Comments Discussion of Advance Directives occurred with: Patient Does the patient have a Living Will? No Does the patient have Health Care Power of Attor mauro? No Care Teams Piece Presser Relationship Specialty Start Date End Date Jasmin Clnie MD [employer] [place] [address] [place] [id number] PCP - General Internal Medicine 05/20/20 documented as of this encounter
--- OUTSIDE RECORDS SUMMARY | 2024-07-31 14:05 | External Medical Summary | Summary of Care ---
Author Name Unknown Organization [facility] Address [address] [place] [address] Phone [phone] Care Team Providers Care Pass Worker Name Role Phone Jasmin Cline MD Primary Car e Provider Reason for Visit * Reason Comments Vomiting N/V/D since yesterda y, UTI also * Auth/Cert Specialty Diagnoses / Procedures Referred By Contac t Referred To Contact [facility] [address] [place] [address] Phone: [phone] Emergency Medicine [facility] [address] [place] [address] Referral ID Status Reason Start Date Expiration Date Visits Re quested Visits Authorized [id number] Encounter Details Date Type Department Care Team (Late st Contact Info) Description 07/21/2024 11:39 AM EDT - 07/21/2024 3:28 PM EDT Emergency [facility] ([facility]) [address] [place] [address] Israel Figueroa, [address] [address] Nausea and vomiting, unspecified vomiting type (Primary Dx) Discharge Disposition: Home - Self Care Allergies Active Allergy Reactions Criticality Noted Date [...] (FLONASE) 50 MCG/ACT nasal spray Administer 1 [place] into nostril in the morning. 03/16/2019 Active aspirin 81 MG chewable tablet Take 1 Tablet by mouth at bedtime. Active Calcium Carbonate-Vitamin D 600-200 MG-UNIT Oral Tablet Take 1 Tablet by mouth in the morning. 01/03/2012 Active nystatin (NYSTOP) 226042 UNIT/GM powder Apply topically to affected area [...] 06/13/2024 Dulaglutide 0.75 MG/0.5ML Subcutaneous Solution Pen-injector ([employer]) Inject 0.75 mg under the skin once [...] Glargine Solostar 100 UNIT/ML Subcutaneous Solution Pen-injector ([employer] KwikPen) Inject under the skin. Active Metoclopramide [...] 09/16/2018 06/06/2020 Overview: DO NOT DELETE [facility] DETECT Study: Project # [id number], Customer Service Officer: Israel Templeton, PhD. SUMMARY: Goal: Establish test [...] contact study staff at ; after hours Customer Service Officer via the [facility] paper rewinder operator . Please contact study team before resolving/deleting from patients problem list. Study phone number: [phone]. Diagnosis changed due to Research Module. Go to Snapshot for study details. Encounter for examination fo r normal comparison and control in clinical research program 09/16/2018 07/05/2022 Overview: DO NOT DELETE - [facility] DETECT Study: Project # [id number], Customer Service Officer: French Pierson, MS, MPH. SUMMARY: Goal: Establish [...] contact study staff at ; after hours Customer Service Officer via the [facility] hospital paper rewinder operator . - Please contact study team before resolving/deleting from patients problem list. Study phone number: [phone]. Diagnosis changed due to Research Module. Go [...] on file documented as of this encounter Last Filed Vital Signs Vital Sign Reading Time Taken Comments Blood Pressure 128/69 07/21/2024 3:00 PM EDT Pulse 95 07/21/2024 3:00 PM EDT Temperature 37 C (98.6 F) 07/21/2024 11: 28 AM EDT Respiratory Rate 24 07/21/2024 3:00 PM EDT Oxygen Saturation 98% 07/21/2024 2:00 PM EDT Inhaled Oxygen Concentration - - Weight 127.8 kg (281 lb 11.2 oz) 2023 11:43 AM EDT Height 157.5 cm (5' 2") 07/21/2024 11:4 3 AM EDT Body Mass Index 51.52 07/21/2024 11:43 AM EDT documented in this encounter Functional Status Functional Status Response [...] No 12/11/2022 documented as of this encounter ED Notes * Israel Figueroa, DO - 07/21/2024 11:51 AM EDT HISTORY OF PRESENT ILLNESS Lilian Mccall is a 74 year old female who presents to the ED for evaluation of Vomiting (N/V/D since yesterday, UTI also). The patient was seen at 07/21/24 1151. According to the patient she reports recently she has been experiencing acute some constipation and was taking multiple stool softeners sinus laxatives at home. She states she then started to have diarrhea and looser stools. She states yesterday into today she has taken Imodium with some improvement of her looser stools. She states today she also had an episode of nausea and subsequent vomiting. She denies any associated significant pain fevers or chills. The patient was recently diagnosed with a urinary tract infection by her primary care physician and was started on antibiotics today. Due to her vomiting she was advised to cometo the ER for further evaluation by her primary care physician. The patient's allergies, past history, and medications were reviewed. PHYSICAL EXAM Initial Vitals (see all): BP 144/76 | Pulse 106 | Resp 18 | Temp 98.6 | O2 97 %, Room Air, None | Weight 127.78 kg | Height 157.5 cm | BMI 51.52 kg/m2 Initial Pain Assessment (see all): 0 (no pain)/10 ([facility] Adult Scale 0-10) Physical Exam Vitals and nursing note reviewed. Constitutional: General: She is not in acute distress. Appearance: She is well-developed. HENT: Head: Normocephalic and atraumatic. Eyes: Conjunctiva/sclera: Conjunctivae normal. Cardiovascular: Rate and Rhythm: Normal rate and regular rhythm. Heart sounds: No murmur heard. Pulmonary: Effort: Pulmonary effort is normal. No respiratory distress. Breath sounds: Normal breath sounds. Abdominal: Palpations: Abdomen is soft. Tenderness: There is no abdominal tenderness. Musculoskeletal: General: No swelling. Cervical back: Neck supple. Skin: General: Skin is warm and dry. Capillary Refill: Capillary refill takes less than 2 seconds. Neurological: Mental Status: She is alert. Psychiatric: Mood and Affect: Mood normal. PROCEDURES AND TREATMENTS ED Orders | ED Results MEDICAL DECISION MAKING Nursing notes and vital signs were reviewed. ED Course as of 07/21/24 1525 Tue Jul 21, 2024 1256 CBC unremarkable [DM] 1320 CMP generally unremarkable [DM] 1320 CT abdomen pelvis shows no signs acute intra-abdominal pathology by my interpretation. Radiology read shows possible renal cyst and ovarian cyst. [DM] 1521 Lipase(!): <5 [DM] ED Course User Index [DM] Israel Figueroa DO Differential Diagnoses Based on my history, physical exam, and evaluation, the differential includes, but is not limited, to the following diagnoses: Cholelithiasis, gastritis, electrolyte abnormality. Patient found to be well appearing in no significant distress with a benign abdominal exam. Given patient's reported history further laboratory studies were performed. These were found to be generally unremarkable. CT abdomen pelvis was also performed that showed no signs of acute abdominal pathology. Patient made aware of CT findings. Patient given further symptomatic care to continue at home and reasons to return to the ER. Also reported that her urinalysis for infection at her primary care doctor's office. She was unsure if her primary care doctor son in an antibiotic, so I sent an antibiotic for further treatment of a potential UTI. Amount and/or Complexity of Data Reviewed Labs: ordered. Decision-making details documented in ED Course. Radiology: ordered. Risk Prescription drug management. Clinical Impressions Nausea and vomiting, unspecified vomiting type Disposition Discharged. The patient's condition at disposition was: stable. Discharge Medications Disp Refills Start End Metoclopramide HCl 5 MG Oral Tablet (Reglan) 30 Tablet 0 07/21/2024 -- Sig - Route: Take 2 Tablets by mouth every 4 hours as needed for Nausea. - Oral Class: ePrescribing Renewals Renewal requests to authorizing provider (Israel Figueroa DO) <b>prohibited</b> Cephalexin 500 MG Oral Capsule (Keflex) 20 Capsule 0 07/21/2024 07/26/2024 Sig - Route: Take 1 Capsule by mouth in the morning and 1 Capsule at noon and 1 Capsule in the evening and 1 Capsule before bedtime. Do all this for 5 days. - Oral Class: ePrescribing Renewals Renewal requests to authorizing provider (Israel Figueroa DO) <b>prohibited</b> Israel Figueroa * Lilian Sharif RN - 07/21/2024 11:45 AM EDT Patient A&Ox4, arrived with daughter after not feel well since last Saturday. Had a stress test last week for pre op knee surgery, after that felt like she was getting a UTI. UTI symptoms include frequency and foul smell. PCP check for UTI Saturday but patient did not get a call back until yesterday to start on a antibiotic today. Since yesterday patient has felt worse with diarrhea and nausea. Patient did have immodium 1 tab yesterday and 1 tab today but still having diarrhea. Nausea continued into today and did vomit several times today, took some zofran and that did not help. Patient denied a fever, no chills or sweats. documented in this encounter Miscellaneous Notes * Pt Handout (on AVS) - Israel Figueroa DO - 07/21/2024 3:23 PM EDT [id number] Vomiting (Adult) Vomiting is a common symptom that may be due to different causes. These include gastroenteritis (stomach flu), food poisoning, and gastritis. Other more serious causes of vomiting may be hard to diagnose early in the illness. That's why it's important to watch for the warning signs listed below. The main danger from repeated vomiting is dehydration. This is because of the loss of water and minerals from the body. When this occurs, your body fluids must be replaced. Home care If symptoms are severe, rest at home for the next 24 hours. Because your symptoms may be from an infection, wash your hands often and well. Use soap and clean, running water or alcohol-based director of elementary education to keep from spreading the infection to others. Wash your hands for at least 20 seconds. Scrub all surfaces of your hands, including between your fingers and under your fingernails each time you wash. Humming the Happy Birthday song twice whileyou wash is an easy way to make sure you've washed for 20 seconds. Wash your hands after using the toilet, before and after preparing food, before eating food, after changing a diaper, cleaning a wound, caring for a sick person, and blowing your nose, coughing, or sneezing. You should also wash your hands after caring for someone who is sick, touching pet food,or treats, and touching an animal, or animal waste. You may use acetaminophen or NSAID medicines such as ibuprofen or naproxen to control fever, unless another medicine was prescribed. Talk with your provider before using these medicines if you have chronic liver or kidney disease or ever had a stomach ulcer or digestive bleeding. Never give aspirin to anyone younger than 18 who is ill with a fever. It may cause severe liver damage. Don't use NS AID medicines if you are already taking one for another condition such as arthritis or take aspirinfor heart disease or after a stroke. Don't use tobacco or drink alcohol. These may make your symptoms worse. If you have trouble stopping either substance, ask your provider for treatment resources. If medicines for vomiting were prescribed, take as directed. Tell your provider if they don't work within the expected time period. Once vomiting stops, then follow these guidelines: During the first 12 to 24 hours, follow the diet below: Fruit juices. Apple, grape juice, clear fruit drinks, and electrolyte replacement drinks. Beverages. Water, soft drinks without caffeine; mineral water (plain or flavored), and decaffeinated tea and coffee. Soups. Clear broth and bouillon. Desserts. Plain gelatin, ice pops, and fruit juice bars. As you feel better, you may add 6 to 8 ounces of yogurt per day. During the next 24 hours you may add the following to the above: Hot cereal, plain toast, bread, rolls, and crackers Plain noodles, rice, mashed potatoes, and chicken noodle or rice soup Unsweetened canned fruit such as applesauce, bananas. Don't have pineapple or citrus. Limit caffeine and chocolate. No spices or seasonings except salt. During the next 24 hours: Gradually go back to your normal diet, as you feel better and your symptoms lessen. Follow-up care Follow up with your healthcare provider as advised. When to seek medical advice Call your healthcare provider right away if any of these occur: Constant right-sided lower belly pain or increasing general belly pain Continued vomiting (unable to keep liquids down) for 24 hours Vomiting blood or what looks like coffee grounds Swollen belly Frequent diarrhea (more than 5 times a day), or blood (red or black color) or mucus in diarrhea Peeing less than usual or extreme thirst Weakness, dizziness, or fainting Unusually drowsy or confused Fever of 100.4F (38C) oral or higher, or as directed by your provider Yellow color of the eyes or skin Other symptoms get worse or you have new symptoms Last Reviewed Date: 09/04/202119993127-9054 [employer]. All rights reserved. This information is not intended as a substitute for professional medical care. Always follow your healthcare professional's instructions. * ED Investigation Lieutenant Note - Ajit Velázquez TECH - 07/21/2024 12:12 PM EDT BSG 135 documented in this encounter Plan of Treatment Upcoming Encounters Date Type Department Care Team (Late st Contact Info) Description 08/19/2024 8:30 AM EDT [facility] [address] [place] [address] Pb Harding PA-C [address] [place] [address] Health Maintenance Due Date Last Done Comments Depression Screening 1962 CKD PHOS USE SMARTSET 89982 01/20/1968 Diabetic Foot Exam 01/20/1968 Hepatitis C [...] Additional history exists CKD HGB USE SMARTSET 56609 07/21/202507/21, 07/21/2024, 04/07/2024, Additional history exists Lipid Panel 06/03/2029 06/03/2024, 06/0 02/2024, 10/03/2023, Additional history exists Pneumococcal Vaccine: 65+ Years Completed 08/14/2018, 09/18/2008, 08/18/2008 Zoster Vaccines Completed 06/01/2019, 02/04, 02/20/2019, Additional history exists VITAMIN D LEVEL ONCE IN A LIFETIME-USE SMARTSET# [id number] Completed 06/03/2024, 06/04/2023, 08/07/2022, Additional history exists HPV (Gardasil) Vaccine Aged Out No lo nger eligible based on patient's age to complete this topic MENINGOCOCCAL (MENACTRA/MENVEO) Aged Out No longer eligible based on patient's age to complete this topic documented as of this encounter Medical Devices Not on filedocumented as of this encounter Procedures Procedure Name Priority Date/Time Associated Diagnosis Comments CT ABD/PELVIS W IV CONTRAST - WO ORAL CONTRAST STAT 07/21/2024 12:31 PM EDT EXTRA GREEN TOP WITH GEL Routine 07/21/2024 12:23 PM EDT EXTRA TUBES Routine 07/21/2024 12:23 PM EDT DIFFERENTIAL, AUTOMATED STAT 07/21/2024 12:23 PM EDT COMPREHENSIVE METABOLIC PANEL STAT 07/21/2024 12:23 PM EDT CBC STAT 07/21/2024 12:23 PM EDT LIPASE STAT 07/21/2024 12:23 PM EDT CBC STAT 07/21/2024 12:23 PM EDT GLUCOSE METER, POINT OF CARE BARRON 07/21/2024 11:59 AM EDT documented in this encounter Results * CT ABD/PELVIS W IV CONTRAST - WO ORAL CONTRAST (07/21/2024 12:31 PM EDT) Anatomical Region Laterality Modality Body, Abdomen, Pelvis Computed T omography 07/21/2024 12:2 7 PM EDT Impressions 07/21/2024 1:15 PM EDT IMPRESSION: 1. Bilateral ovarian cysts, largest measuring 5.7 cm on the right. 2. No bowel obstruction or focal inflammatory process throughout the gastrointestinal tract. 3. Small hiatal hernia. 4. Tiny cyst within the right kidney measuring 9 mm, stable in the interval and too small to accurately characterize. Otherwise unremarkable abdominal viscera. THIS DOCUMENT HAS BEEN ELECTRONICALLY SIGNED BY SUSSY HANDY MD Narrative 07/21/2024 1:15 PM EDT PROCEDURE INFORMATION: Exam: CT Abdomen And Pelvis With Contrast Exam date and time: 07/21/2024 12:27 PM Age: 74 years old Clinical indication: Nausea and vomiting; Additional info: Nausea vomiting diarrhea TECHNIQUE: Imaging protocol: Computed tomography of the abdomen and pelvis with contrast. Radiation optimization: All CT scans at this facility use at least one of these dose optimization techniques: automated exposure control; mA and/or kV adjustment per patient size (includes targeted exams where dose is matched to clinical indication); or iterative reconstruction. Contrast material: ISOVUE 370; Contrast volume: 80 ml; Contrast route: INTRAVENOUS (IV); COMPARISON: 1. CT ABD/PELVIS W IV CON 03/09/2022 2:[address] dated 03/09/2022. 3. CT dated 12/16/2020. FINDINGS: Lungs: Mild bilateral lower lobe atelectasis, slightly more significant on the left. Multiple left lower lobe pulmonary nodules, largest measuring 9.4 mm, unchanged in the interval. Heart: Mild cardiomegaly with coronary artery calcifications. Diaphragm: Small hiatal hernia. The stomach is decompressed, otherwise unremarkable. Anteverted uterus. Liver: Normal. No mass. Gallbladder and biliary ducts: Normal. No calcified stones. No ductal dilation. Pancreas: Normal. No ductal dilation. Spleen: Normal. No splenomegaly. Adrenal glands: Left adrenal nodule measuring 2.2 x 1.9 cm, stable on comparison to report dated 12/16/2020 and therefore most compatible with benign process. Normal right adrenal gland. Kidneys and ureters: Right lower renal pole low-attenuation structure measuring 9 mm, stable when compared to CT dated 03/09/2022, likely cysts and too small to accurately characterize. Otherwise normal right kidney. Normal left kidney. Stomach and bowel: See "Diaphragm" finding. Appendix: No evidence of appendicitis. Intraperitoneal space: Unremarkable. No free air. No significant fluid collection. Vasculature: Calcified atherosclerotic disease of aorta. Lymph nodes: Unremarkable. No enlarged lymph nodes. Urinary bladder: Unremarkable as visualized. Reproductive: Right adnexal cyst measuring 5.7 x 4.1 cm. Left adnexal cyst measuring 1.8 x 1.7 cm. Bones/joints: Diffuse osteopenia/osteoporosis. Posterior fusion from L2 through S1. Grade 1 anterolisthesis of L5 on S1 (7.6 mm), unchanged since exam 03/09/2022. Vacuum phenomenon at T12-L1. Vdrwxvpb-vm-xuoetk compression fracture of T11. Soft tissues: Unremarkable. Procedure Note Sussy Handy MD - 07/21/2024 PROCEDURE INFORMATION: Exam: CT Abdomen And Pelvis With Contrast Exam date and time: 07/21/2024 12:27 PM Age: 74 years old Clinical indication: Nausea and vomiting; Additional info: Nausea vomiting diarrhea TECHNIQUE: Imaging protocol: Computed tomography of the abdomen and pelvis withcontrast. Radiation optimization: All CT scans at this facility use at least one ofthese dose optimization techniques: automated exposure control; mA and/or kV adjustment per patient size (includes targeted exams where dose is matchedto clinical indication); or iterative reconstruction. Contrast material: ISOVUE 370; Contrast volume: 80 ml; Contrast route: INTRAVENOUS (IV); COMPARISON: 1. CT ABD/PELVIS W IV CON 03/09/2022 2:[address] dated 03/09/2022. 3. CT dated 12/16/2020. FINDINGS: Lungs: Mild bilateral lower lobe atelectasis, slightly more significant onthe left. Multiple left lower lobe pulmonary nodules, largest measuring 9.4mm, unchanged in the interval. Heart: Mild cardiomegaly with coronary artery calcifications. Diaphragm: Small hiatal hernia. The stomach is decompressed, otherwise unremarkable. Anteverted uterus. Liver: Normal. No mass. Gallbladder and biliary ducts: Normal. No calcified stones. No ductaldilation. Pancreas: Normal. No ductal dilation. Spleen: Normal. No splenomegaly. Adrenal glands: Left adrenal nodule measuring 2.2 x 1.9 cm, stable on comparison to report dated 12/16/2020 and therefore most compatible withbenign process. Normal right adrenal gland. Kidneys and ureters: Right lower renal pole low-attenuation structuremeasuring 9 mm, stable when compared to CT dated 03/09/2022, likely cysts and toosmall to accurately characterize. Otherwise normal right kidney. Normal leftkidney. Stomach and bowel: See "Diaphragm" finding. Appendix: No evidence of appendicitis. Intraperitoneal space: Unremarkable. No free air. No significant fluid collection. Vasculature: Calcified atherosclerotic disease of aorta. Lymph nodes: Unremarkable. No enlarged lymph nodes. Urinary bladder: Unremarkable as visualized. Reproductive: Right adnexal cyst measuring 5.7 x 4.1 cm. Left adnexal cyst measuring 1.8 x 1.7 cm. Bones/joints: Diffuse osteopenia/osteoporosis. Posterior fusion from I7ezxcavu S1. Grade 1 anterolisthesis of L5 on S1 (7.6 mm), unchanged since exam 03/09/2022. Vacuum phenomenon at T12-L1. Rytaquco-st-ikopfp compression fracture of T11. Soft tissues: Unremarkable. IMPRESSION IMPRESSION: 1. Bilateral ovarian cysts, largest measuring 5.7 cm on the right. 2. No bowel obstruction or focal inflammatory process throughout the gastrointestinal tract. 3. Small hiatal hernia. 4. Tiny cyst within the right kidney measuring 9 mm, stable in theinterval and too small to accurately characterize. Otherwise unremarkable abdominal viscera. THIS DOCUMENT HAS BEEN ELECTRONICALLY SIGNED BY SUSSY HANDY MD Israel Figueroa DO RAD CT * EXTRA GREEN TOP WITH GEL (07/21/2024 12:23 PM EDT) Blood Venous blood specimen / Unknown 07/21/2024 12:23 PM EDT 07/21/2024 12:29 PM EDT Israel Figueroa DO LAB BLOOD ORDERABL ES [facility] [place] [address] [place] [address] * (ABNORMAL) DIFFERENTIAL, AUTOMATED (07/21/2024 12:23 PM EDT) WBC 10.51 4.00 - 10.80 K/uL 07/21/2024 12:37 PM EDT LAB[facility]ATORY [facility] Neutrophils % 75.5(H) 40.0 - 75.0 % 07/21/2024 12:37 PM EDT [facility]ORY [facility] Lymphocytes % 12.0(L) 18.0 - 42.0 % 07/21/2024 12:37 PM EDT [facility] Monocytes % 10.6 1.0 - 11.0 % 07/21/2024 12:37 PM EDT [facility] Eosinophils % 1.7 0.0 - 6.0 % 07/21/2024 12:37 PM EDT [facility] Basophils % 0.2 0.0 - 2.0 % 07/21/2024 12:37 PM EDT LAB[facility] Absolute Neutrophils 7.94(H) 1.80 - 7.70 K/uL 07/21/2024 12:37 PM EDT [facility] Absolute Lymphocytes 1.26 1.00 - 4.80 K/ul 07/21/2024 12:37 PM EDT [facility] Absolute Monocytes 1.11(H) 0.00 - 1.10 K/uL 07/21/2024 12:37 PM EDT [facility] Absolute Eosinophils 0.18 0.00 - 0.70 K/uL 07/21/2024 12:37 PM EDT [facility] Absolute Basophils 0.02 0.00 - 0.20 K/uL 07/21/2024 12:37 PM EDT [facility] Blood Venous blood specimen / Unknown Venipuncture / Unknown 07/21/2024 12:23 PM EDT 07/21/2024 12:28 PM EDT Israel Figueroa DO LAB BLOOD ORDERABL ES [facility] [place] [address] [place] [address] * CBC (07/21/2024 12:23 PM EDT) WBC 10.51 4.00 - 10.80 K/uL 07/21/2024 12:37 PM EDT [facility] RBC 3.84 3.85 - 5.15 M/uL 07/21/2024 12:37 PM EDT [facility] HGB 12.9 12.0 - 15.3 g/dL 07/21/2024 12:37 PM EDT [facility] HCT 39.0 36.0 - 45.2 % 07/21/2024 12:37 PM EDT [facility] MCV 101.6 81.5 - 97.5 fL 07/21/2024 12:37 PM EDT [facility] MCH 33.6 27.0 - 34.0 pg 07/21/2024 12:37 PM EDT LAB[facility] MCHC 33.1 32.0 - 36.0 g/dL 07/21/2024 12:37 PM EDT [facility] RDW 13.6 11.5 - 15.5 % 07/21/2024 12:37 PM EDT [facility] PLT 185 140 - 400 K/uL 07/21/2024 12:37 PM EDT [facility] MPV 9.8 6.6 - 11.1 fL 07/21/2024 12:37 PM EDT [facility] Blood Venous blood specimen / Unknown Venipuncture / Unknown 07/21/2024 12:23 PM EDT 07/21/2024 12:28 PM EDT Israel Figueroa LAB BLOOD ORDERABL ES Performing Organization Address City/[facility]/ZIP Co de Phone Number LABORATORY [address] [address] * (ABNORMAL) LIPASE (07/21/2024 12:23 PM EDT) [facility] Lipase <5(L) 13 - 60 U/L 07/21/2024 3:16 PM EDT [facility] Blood Venous blood specimen / Unknown Venipuncture / Unknown 07/21/2024 12:23 PM EDT 07/21/2024 12:28 PM EDT Israel Figueroa LAB BLOOD ORDERABL ES Performing Organization Address City/[facility]/ZIP Co de Phone Number LABORATORY [address] [address] * (ABNORMAL) COMPREHENSIVE METABOLIC PANEL (07/21/2024 12:23 PM EDT) [facility] BUN - POCT 16 6 - 20 mg/dL 07/21/2024 1:10 PM EDT LAB[facility]ATORY [facility] CREATININE - POCT 1.4(H) 0.5 - 1.0 mg/dL 07/21/2024 1:10 PM EDT LAB[facility]ATORY [facility] EGFR 39(L) >=60 mL/min 07/21/2024 1:10 PM EDT [facility] Comment:eGFR is calculated b ased on the CKD-EPI 2020 equation. SODIUM - POCT 142 135 - 146 mmol/L 07/21/2024 1:10 PM EDT LAB[facility]ATORY [facility] POTASSIUM - POCT 5.4(H) 3.5 - 5.1 mmol/L 07/21/2024 1:10 PM EDT LAB[facility]ATORY [facility] CHLORIDE - POCT 109(H) 98 - 107 mmol/L 07/21/2024 1:10 PM EDT LABORATORY SH CO2 - POCT 26 22 - 32 mmol/L 07/21/2024 1:10 PM EDT [facility] ANION GAP - POCT 7 7 - 15 mmol/L 07/21/2024 1:10 PM EDT [facility] GLUCOSE - POCT 135(H) 70 - 120 mg/dL 07/21/2024 1:10 PM EDT [facility] Albumin 3.8 3.5 - 4.4 g/dL 07/21/2024 1:10 PM EDT [facility] AST 29 10 - 35 U/L 07/21/2024 1:10 PM EDT [facility] Alkaline Phosphatase 65 35 - 130 U/L 07/21/2024 1:10 PM EDT [facility] Bilirubin, Total 1.1 <=1.2 mg/dL 07/21/2024 1:10 PM EDT [facility] CALCIUM - POCT 8.7 8.4 - 10.2 mg/dL 07/21/2024 1:10 PM EDT [facility] Protein, Total 6.9 6.0 - 8.3 g/dL 07/21/2024 1:10 PM EDT [facility] ALT 26 10 - 35 U/L 07/21/2024 1:10 PM EDT [facility] Blood Venous blood specimen / Unknown Venipuncture / Unknown 07/21/2024 12:23 PM EDT 07/21/2024 12:28 PM EDT Israel Figueroa DO LAB BLOOD ORDERABL ES [facility]AT[facility] [address] [place] [address] * (ABNORMAL) GLUCOSE METER, POINT OF CARE (07/21/2024 11:59 AM EDT) GLUCOSE - POCT 135(H) 70 - 120 mg/dL 07/21/2024 12:04 PM EDT [facility] Blood Whole blood specimen / Unknown 07/21/2024 11:59 AM EDT 07/21/2024 12:04 PM EDT Israel Figueroa DO LAB POINT OF CARE TEST DOCKED DEVICE UNSOLICITED RESULTS [facility]AT[facility] [place] [address] [place] [address] documented in this encounter Visit Diagnoses Diagnosis Nausea and vomiting, unspecified vomiting type- Primary documented in this encounter Administered Medications Inactive Administered Medications - up to 3 most recent administrations Medication Order MAR Action Action Date Dose Rate Site Iopamidol (Isovue 370) inj 80 mL 80 mL, Intravenous, ONCE, On Sat07/21/24 at 1315, For 1 dose, Radiology Medication Routing (Non-IR) Given 07/21/2024 1:15 PM EDT 80 mL metoclopramide (Reglan) inj 10 mg 10 mg, IV Push, ONCE, On Sat07/21/24 at 1245, For 1 dose Given 07/21/2024 12:26 PM EDT 10 mg NSS 0.9% 1,000 mL bolus infusion Peripheral IV, at 1,000 mL/hr Administer over 60 Minutes, Administer entire volume within 60 minutes or less., ONCE, 1 dose, On Sat07/21/24 at 1245 KVO 07/21/2024 1:47 PM EDT 5 mL/hr Restarted 07/21/2024 1:42 PM EDT 1000 mL/hr Restarted 07/21/2024 12:35 PM EDT 1000 mL/hr documented in this encounter Active and Recently Administered Medications Times are shown in EDT. Scheduled Medication Order 07/19/2024 07/20/2024 07/21/2024 Iopamidol (Isovue 370) inj 80 mL (COMPLETED) 80 mL, Intravenous, ONCE, On Sat07/21/24 at 1315, For 1 dose, Radiology Medication Routing (Non-IR) 1315 (Given - Provid er: Shyam Hernandez RT) metoclopramide (Reglan) inj 10 mg (COMPLETED) 10 mg, IV Push, ONCE, On Sat07/21/24 at 1245, For 1 dose 1226 (Given - Provid er: Kang Bernard RN) NSS 0.9% 1,000 mL bolus infusion (COMPLETED) Peripheral IV, at 1,000 mL/hr Administer over 60 Minutes, Administer entire volume within 60 minutes or less., ONCE, 1 dose, On Sat07/21/24 at 1245 1229 (New Bag - Prov ider: Kang Bernard RN)1229 (Paused - Provider: Rebeka Rossi RN)1235 (Restarted - Provider: Rebeka Rossi RN)1335 (Paused - Provider: Rebeka Rossi RN)1342 (Restarted - Provider: Rebeka Rossi RN)1347 (KVO - Provider: Rebeka Rossi RN)1358 (Stopped - Provider: Rebeka Rossi RN) documented in this encounter Advance Directives * [...] patient have Health Care Power of Sales Support Rep? Yes, not currently available * Full Code Date Activated Date Inactivated Comments 12/12/2022 12:28 AM 12/12/2022 6:42 AM This order re flects the patients wishes and were consensually agreed upon. Question Answer Comments Discussion of Advance Direct agapito occurred with: Not Discussed due to patient's condition Does the patient have a Living Will? No Does the patient have Health Care Power of Sales Support Rep? No * Full Code Date Activated Date Inactivated Comments 12/12/2022 12:13 AM 12/12/2022 12:28 AM This order r eflects the patients wishes and were consensually agreed upon. Question Answer Comments Discussion of Advance Direct agapito occurred with: Not Discussed due to patient's condition Does the patient have a Living Will? No Does the patient have Health Care Power of Sales Support Rep? No * Full Code Date Activated Date Inactivated Comments 10/14/2021 5:33 PM 10/16/2021 4:43 PM This order reflects the patients wishes and were consensually agreed upon. Question Answer Comments Discussion of Advance Directives occurred with: Patient Does the patient have a Living Will? Yes, not cu rrently available Does the patient have Health Care Power of Sales Support Rep? Yes, not currently available * Full Code Date Activated Date Inactivated Comments 06/05/2020 2:40 PM 06/08/2020 5:16 PM This order ref lects the patients wishes and were consensually agreed upon. Question Answer Comments Discussion of Advance Directives occurred with: Patient Does the patient have a Living Will? No Does the patient have Health Care Power of Attor mauro? No Care Teams Pass Worker Relationship Specialty Start Date End Date Jasmin Cline MD [employer] [place] [address] [place], [place] [phone] PCP - General Internal Medicine 05/20/20 documented as of this encounter
--- OUTSIDE RECORDS SUMMARY | 2024-07-31 14:05 | External Medical Summary ---
Author Name Unknown Address Unknown Organization [id number]:[facility] [place] [address] [facility] [address] Laboratory Report Ordering Provider Test Date Status ROMULO CHO 07/17/2024 10:59:53 Final Observation Date Value Abnormality Reference (Units ) Status Color of Urine by Auto 07/17/2024 10:59:53 Light Yellow Colorless, Light Yellow, Yellow, Dark Yellow Final Clarity, Urine 07/17/2024 10:59:53 Slightly Cloudy Abnormal Clear Final Glucose [Mass/volume] in Urine by Automated test strip 07/17/2024 10:59:53 Negative Negative (mg/dL) Final Bilirubin.total [Presence] in Urine by Automated test strip 07/17/2024 10:59:53 Negative Negative Final Ketones [Mass/volume] in Urine by Automated test strip 07/17/2024 10:59:53 Negative Negative (mg/dL) Final Specific gravity, Urine 07/17/2024 10:59:53 1.014 1.003-1.030 Final Hemoglobin [Presence] in Urine by Automated test strip 07/17/2024 10:59:53 Negative Negative Final pH, Urine 07/17/2024 10:59:53 7.0 5.0-7.5 (Units) Final Protein [Mass/volume] in Urine by Automated test strip 07/17/2024 10:59:53 Negative Negative (mg/dL) Final Urobilinogen [Mass/volume] in Urine by Automated test strip 07/17/2024 10:59:53 Normal Normal (mg/dL) Final Nitrite [Presence] in Urine by Automated test strip 07/17/2024 10:59:53 Negative Negative Final Leukocyte esterase [Presence] in Urine by Automated test strip 07/17/2024 10:59:53 Large Abnormal Negative Final RBC, Urine 07/17/2024 10:59:53 0-2 0-2 (/HPF) Final WBC, Urine 07/17/2024 10:59:53 10-19 Abnormal 0-2 (/HPF) Final Bacteria [#/area] in Urine sediment by Microscopy high power field 07/17/2024 10:59:53 101-150 Abnormal 0-25 (/HPF) Final Epithelial cells.squamous [#/area] in Urine sediment by Microscopy high power field 07/17/2024 10:59:53 Many Abnormal None (/HPF) Final Epithelial cells.renal [#/area] in Urine sediment by Microscopy high power field 07/17/2024 10:59:53 1-4 Abnormal None (/HPF) Final CULTURE, URINE - [facility] 07/17/2024 10:59:53 Final Quantitative urine culture t o be performed Performing Location [facility] [place] [address] [facility] [address]
--- OUTSIDE RECORDS SUMMARY | 2024-07-31 14:05 | External Medical Summary ---
Author Name Unknown Address Unknown Organization [id number]:LABORATORY [facility] - [address] [place] [id number] Laboratory Report Ordering Provider Test Date Status PRESLEY TORRES 07/21/2024 12:23:20 Final Observation Date Value Abnormality Reference (Units ) Status Lipase 07/21/2024 12:23:20 <5 Below low normal 13- 60 (U/L) Final Performing Location LABORATORY [facility] - [address] [place] [phone]
--- OUTSIDE RECORDS SUMMARY | 2024-07-31 14:05 | External Medical Summary ---
Author Name Unknown Address Unknown Organization [id number]:LABORATORY [facility] - [address] [place] [phone] Laboratory Report Ordering Provider Test Date Status PRESLEY TORRES 07/21/2024 12:23:20 Final Observation Date Value Abnormality Reference (Units ) Status WBC, Total 07/21/2024 12:23:20 10.51 4.00-10.8 0 (K/uL) Final RBC 07/21/2024 12:23:20 3.84 3.85-5.15 (M/uL) Final Hemoglobin 07/21/2024 12:23:20 12.9 12.0-15.3 (g/dL) Final HCT 07/21/2024 12:23:20 39.0 36.0-45.2 (%) Final MCV 07/21/2024 12:23:20 101.6 81.5-97.5 (fL) Final MCH 07/21/2024 12:23:20 33.6 27.0-34.0 (pg) Final MCHC 07/21/2024 12:23:20 33.1 32.0-36.0 (g/dL) Final RDW 07/21/2024 12:23:20 13.6 11.5-15.5 (%) Final Platelets 07/21/2024 12:23:20 185 140-400 (K /uL) Final MPV 07/21/2024 12:23:20 9.8 6.6-11.1 ( fL) Final Performing Location LABORATORY [facility] - [address] [facility] [phone]
--- OUTSIDE RECORDS SUMMARY | 2024-07-31 14:06 | External Medical Summary ---
Author Name Unknown Address Unknown Organization K01:[facility] [place] [address] [place] [id number] Laboratory Report Ordering Provider Test Date Status ROMULO CHO 07/17/2024 10:59:53 Final Observation Date Value Abnormality Reference (Units) Status Bacteria identified in Specimen by Culture 07/17/2024 10:59:53 No significant growth Final Test: Culture, Urine, Quanti tative
Specimen Source: Urine, Clean Catch
Specimen Type: Urine
Specimen Date: 07/17/2024 1059
Result Date: 07/18/2024 1442
Result Status: Final result
Resulting Lab: [facility] [place]
[address]
[place] [id number]

CULTURE

No significant growth

null Performing Location [facility] [place] [address] [facility] [place] [address]
--- OUTSIDE RECORDS SUMMARY | 2024-07-31 14:06 | External Medical Summary | Summary of Care ---
Author Name Unknown Organization [facility] Address [address] [address] Phone [phone] Care Team Providers Care Delivery Analyst Name Role Phone Jasmin Cline MD Primary Car e Provider Reason for Referral * Evaluate & Treat - Unlimited Visits (Within 10 days (routine)) - Authorized Specialty Diagnoses / Procedures Referred By Joseph porras Referred To Contact Orthopaedic Surgery / Orthopedics Diagnoses Bursitis of left shoulder Roberta Ballard PA-C [address] [place] [address] Referral ID Status Reason Start Date Expiration Date Visits Requested Visits Authorized [id number] Authorized Specialty Services Required 07/05/[phone] Question Answer Referral Priority Within 10 days (routine) Where should this appointment be scheduled? [facility] What body part is the patient being seen for? Shoulder What condition is the patient being seen for? Sprain/Strain/Tear/Other Reason for Visit * Reason Comments Other Bursitis in left melina ulder Encounter Details Date Type Department Care Team (Late st Contact Info) Description 07/05/2024 9:50 AM EDT [place] [place] [address] Roberta Ballard PA-C [address] [place] [address] Bursitis of left shoulder* Allergies Active Allergy Reactions Criticality Noted Date Comments Semaglutide(0.25 Or 0.5mg-Dos) Nausea/vomiting 01/27/2024 Lanolin Rash Medium 03/08/2022 Fabric wool documented as of this encounter (statuses as of 07/08/2024) Medications Medication Sig Dispensed Refills Start Date End Date Status VENTOLIN HFA 108 (90 Base) MCG/ACT inhaler Inhale 2 Puffs by mouth every 4 hours as needed for Wheezing. 03/24/2019 Active atorvaSTATin (LIPITOR) 20 MG Tablet Take 1 Tablet by mouth in the morning. 03/18/2019 Active fluticasone (FLONASE) 50 MCG/ACT nasal spray Administer 1 [place] into nostril in the morning. 03/16/2019 Active aspirin 81 MG chewable tablet Take 1 Tablet by mouth at bedtime. Active Calcium Carbonate-Vitamin D 600-200 MG-UNIT Oral Tablet Take 1 Tablet by mouth in the morning. 01/03/2012 Active nystatin (NYSTOP) 307606 UNIT/GM powder Apply topically to affected area [...] 06/13/2024 Dulaglutide 0.75 MG/0.5ML Subcutaneous Solution Pen-injector ([place]) Inject 0.75 mg under the skin once [...] (Basaglar KwikPen) Inject under the skin. Active predniSONE 20 MG Oral Tablet (Deltasone)Indicati ons:Bursitis of left shoulder Take 2 Tablets by mouth in the morning for 5 days. 10 Tablet 07/05/2024 07/10/2024 Active documented as of this encounter (statuses as of 07/08/2024) Active Problems Problem Noted Date Diagnosed Date [...] as of this encounter (statuses as of 07/08/2024) Resolved Problems Problem Noted Date Diagnosed Date Resolved Date Acute respiratory insufficiency 12/11/2022 12/13/2022 Hypoxia 12/11/2022 12/13/2022 Intractable nausea and vomiting 06/05/2020 06/08/2020 Encounter for examination fo r normal comparison and control in clinical research program 09/16/2018 06/06/2020 Overview: DO NOT DELETE [facility] DETECT Study: Project # [id number], Cotton Washer: Israel Templeton, PhD. SUMMARY: Goal: Establish test [...] contact study staff at ; after hours Cotton Washer via the [facility] tin whiz machine operator . Please contact study team before resolving/deleting from patients problem list. Study phone number: [phone]. Diagnosis changed due to Research Module. Go to Snapshot for study details. Encounter for examination fo r normal comparison and control in clinical research program 09/16/2018 07/05/2022 Overview: DO NOT DELETE [facility] DETECT Study: Project # [id number], Cotton Washer: French Pierson, MS, MPH. SUMMARY: Goal: Establish [...] contact study staff at ; after hours Cotton Washer via the [facility] hospital tin whiz machine operator . - Please contact study team before resolving/deleting from patients problem list. Study phone number: [phone]. Diagnosis changed due to Research Module. Go to Snapshot for study details. documented as of this encounter (statuses as of 07/08/2024) Immunizations Name Administration Dates Next Due COVID-19 [...] Sign Reading Time Taken Comments Blood Pressure 107/69 07/05/2024 10:09 AM EDT Pulse 91 07/05/2024 10:09 AM EDT Temperature 36.3 C (97.3 F) 07/05/2024 10:09 AM E DT Respiratory Rate 16 07/05/2024 10:09 AM EDT Oxygen Saturation 95% 07/05/2024 10:09 AM EDT Inhaled Oxygen Concentration - - Weight - - Height - - Body Mass Index - - documented in this encounter Functional Status Functional [...] No 12/11/2022 documented as of this encounter Progress Notes * Roberta Ballard PA-C - 07/08/2024 11:21 AM EDT Images from the original note were not included. Subjective: Lilian Mccall is a 74 year old female. Chief Complaint Patient presents with Other Bursitis in left shoulder HPI: Here today with complaint of L shoulder pain. This pain is ongoing for her. She was told in the past she has OA of the shoulder along with bursitis. She has been seen here the last few months toget a script for prednisone as she reports this is the only thing that allows her to get through her daily tasks like showering and getting dressed without being in severe pain. She denies new injuryto the area, feels like the flares she has had in the past. No numbness or tingling of the left arm. No chest pain or sob. No jaw pain, headache or dizziness. She is established with ortho for her knees but would like a referral through [facility] for her shoulder. Patient Active Problem List Diagnosis Acquired spondylolisthesis Age-related osteoporosis without current pathological fracture Benign essential hypertension Cough Disease of liver Emotional stress Hyperlipidemia Idiopathic peripheral neuropathy Low back pain Nonproliferative diabetic retinopathy (HCC) Morbid obesity (HCC) Osteoarthritis of knee Osteoarthritis of lumbar spine Peripheral venous insufficiency Stage 3 chronic kidney disease (HCC) Type 2 diabetes mellitus with hyperglycemia, with long-term current use of insulin (HCC) Vitamin D deficiency Complicated UTI (urinary tract infection) Impaired mobility and ADLs Acute bronchitis due to Rhinovirus Dilated cardiomyopathy (HCC) Diastolic congestive heart failure (HCC) Acute renal failure superimposed on stage 3a chronic kidney disease (HCC) Acute respiratory disease due to COVID-19 virus Diastolic CHF, chronic (HCC) Current Outpatient Medications Medication Sig Dispense Refill aspirin 81 MG chewable tablet Take 1 Tablet by mouth at bedtime. atorvaSTATin (LIPITOR) 20 MG Tablet Take 1 Tablet by mouth in the morning. Calcium Carbonate-Vitamin D 600-200 MG-UNIT Oral Tablet Take 1 Tablet by mouth in the morning. Cholecalciferol 25 MCG (1000 UT) Oral Tablet Chewable Take 1,000 Units by mouth daily. Dulaglutide 0.75 MG/0.5ML Subcutaneous Solution Pen-injector (Trulicity) Inject 0.75 mg under the skin once a week. On Fridays Famotidine 20 MG Oral Tablet (Pepcid) Take 1 Tablet by mouth 2 times a day. (Patient not taking: Reported on 06/13/2024) 60 Tablet 3 fluticasone (FLONASE) 50 MCG/ACT nasal spray Administer 1 [place] into nostril in the morning. Furosemide 20 MG Oral Tablet (Lasix) Take 1 Tablet by mouth in the morning. Insulin Aspart 100 UNIT/ML Subcutaneous Solution Pen-injector (novoLOG) Inject 35 Units under the skin in the morning and 35 Units at noon and 35 Units in the evening. Inject with meals. Novolog scale- <151 mg/dL- 35 units 150-200 mg/dL- 36 units 201- 250 mg/dL- 37 units 251-300 mg/dL- 38 units . Insulin Glargine Solostar 100 UNIT/ML Subcutaneous Solution Pen-injector (Basaglar KwikPen) Inject under the skin. Lidocaine 4 % External Patch (Aspercreme) Place 1 Patch over 12 hours topically on the skin daily. 30 Patch 0 Lisinopril 10 MG Oral Tablet (Prinivil) Take 1 Tablet by mouth in the morning. Methenamine Hippurate 1 GM Oral Tablet (Hiprex) Take 1 Tablet by mouth in the morning and 1 Tablet before bedtime. Metoprolol Succinate ER 25 MG Oral Tablet Extended Release 24 Hour (toPROL XL) Take 1 Tablet by mouth in the morning. 30 Tablet 11 nystatin (NYSTOP) 628297 UNIT/GM powder Apply topically to affected area 3 times a day. Apply to breasts, abdominal fold predniSONE 20 MG Oral Tablet (Deltasone) Take 2 Tablets by mouth in the morning for 5 days. 10 Tablet 0 Spironolactone 25 MG Oral Tablet (Aldactone) Take 1 Tablet by mouth in the morning. VENTOLIN HFA 108 (90 Base) MCG/ACT inhaler Inhale 2 Puffs by mouth every 4 hours as needed for Wheezing. Vitamin C 1000 MG Oral Tablet Take 1 Tablet by mouth in the morning. No current facility-administered medications for this visit. Review of patient's allergies indicates: Allergen Reactions Wool Alcohol [Lanolin] Rash Fabric wool Ozempic (0.25 Or 0.5 Mg-Dose) [Semaglutide(0.25 Or 0.5mg-Dos)] Nausea/vomiting ROS: all areas negative except as mentioned under HPI Physical Exam: BP 107/69 | Pulse 91 | Temp 36.3 C (97.3 F) (Tympanic) | Resp 16 | SpO2 95% Physical Exam Vitals and nursing note reviewed. Constitutional: General: She is not in acute distress. Appearance: Normal appearance. She is not ill-appearing. Cardiovascular: Rate and Rhythm: Normal rate. Pulmonary: Effort: Pulmonary effort is normal. No respiratory distress. Musculoskeletal: Left shoulder: Tenderness present. No swelling, bony tenderness or crepitus. Decreased range of motion. Normal strength. Normal pulse. Left elbow: No swelling. Normal range of motion. No tenderness. Left wrist: No swelling or tenderness. Normal range of motion. Normal pulse. Left hand: Normal strength. Normal capillary refill. Arms: Neurological: Mental Status: She is alert and oriented to person, place, and time. Assessment/Plan: Lilian was seen today for other. Diagnoses and all orders for this visit: Bursitis of left shoulder - predniSONE 20 MG Oral Tablet (Deltasone); Take 2 Tablets by mouth in the morning for 5 days. - ORTHOPAEDICS REFERRAL OP Explained that she cannot continue taking prednisone penitentiary for this condition. She would benefit from ortho eval which she is agreeable to, referral placed. Strict return/ED precautions given, ptagreeable to plan. Roberta Ballard PA-C [facility] [place] [address] [phone] documented in this encounter Nursing Notes * Cici Oliver LPN - 07/05/2024 10:07 AM EDT Nursing Notes: CC: Chief Complaint Patient presents with Other Bursitis in left shoulder Brief Hx: Patient is here with complaint of bursitis in her left shoulder. Had an x-[facility] at [facility] they told her it looks like osteoporosis. She said that prednisone works for this she's had before at the same time she had UTI Duration/Onset: 2 days ago OTC meds: extra strength tylenol and sometimes she takes motrin Accompanied by: self documented in this encounter Plan of Treatment Upcoming Encounters Date Type Department Care Team (Late st Contact Info) Description 08/19/2024 8:30 AM EDT [facility] [address] [place] [address] Pb Harding PA-C [address] [place] [address] Scheduled Referrals Name Type Priority Associated Diagnoses Order Schedule ORTHOPAEDICS REFERRAL OP Referral Within 10 days (routine) Bursitis of left shoulder Ordered: 07/05/2024 Health Maintenance Due Date Last Done Comments Depression Screening 1962 CKD PHOS USE SMARTSET 62437 01/20/1968 Diabetic Foot Exam 01/20/1968 Hepatitis C [...] 09/04, 09/12/2021, Additional history exists COVID-19 Vaccine (2022- season) 2024 02/18/2022, 09/05/2021, 01/05/2021, Additional history exists Influenza Vaccine (FLU shot) (#1) 2024 07/03/2022, 07/03/2022, 08/10/2021, Additional history exists GFR 12/04/2024 06/03/2024, 06/0 02/2024, 01/23/2024, Additional history exists HbA1c 12/04/2024 06/03/2024, 06/0 02/2024, 01/23/2024, Additional history exists Albumin/Creatinine Ratio 04/07/2025 024, 10/03/2023, 02/23/2023, Additional history exists CKD HGB USE SMARTSET 88722 04/07/202504/07, 04/07/2024, 10/03/2023, Additional history exists Diabetic Eye Exam 05/18/2025 05/18/2024, , 11/06/2023, Additional history exists Lipid Panel 06/03/2029 06/03/2024, 0 02/2024, 10/03/2023, Additional history exists Pneumococcal Vaccine: 65+ Years Completed 08/14/2018, 09/18/2008, 08/18/2008 Zoster Vaccines Completed 06/01/2019, 02/04, 02/20/2019, Additional history exists VITAMIN D LEVEL ONCE IN A LIFETIME-USE SMARTSET# [id number] Completed 06/03/2024, 06/04/2023, 08/07/2022, Additional history exists HPV (Gardasil) Vaccine Aged Out No lo nger eligible based on patient's age to complete this topic MENINGOCOCCAL (MENACTRA/MENVEO) Aged Out No longer eligible based on patient's age to complete this topic documented as of this encounter Medical Devices Not on filedocumented as of this encounter Visit Diagnoses Diagnosis Bursitis of left shoulder- Primary Disorders of bursae and tendons in shoulder region, unspecified documented in this encounter Advance Directives * [...] the patient have Health Care Power of Human Resources Technician? Yes, not currently available * Full Code Date Activated Date Inactivated Comments 12/12/2022 12:28 AM 12/12/2022 6:42 AM This order re flects the patients wishes and were consensually agreed upon. Question Answer Comments Discussion of Advance Direct agapito occurred with: Not Discussed due to patient's condition Does the patient have a Living Will? No Does the patient have Health Care Power of Human Resources Technician? No * Full Code Date Activated Date Inactivated Comments 12/12/2022 12:13 AM 12/12/2022 12:28 AM This order r eflects the patients wishes and were consensually agreed upon. Question Answer Comments Discussion of Advance Direct agapito occurred with: Not Discussed due to patient's condition Does the patient have a Living Will? No Does the patient have Health Care Power of Human Resources Technician? No * Full Code Date Activated Date Inactivated Comments 10/14/2021 5:33 PM 10/16/2021 4:43 PM This order reflects the patients wishes and were consensually agreed upon. Question Answer Comments Discussion of Advance Directives occurred with: Patient Does the patient have a Living Will? Yes, not cu rrently available Does the patient have Health Care Power of Human Resources Technician? Yes, not currently available * Full Code Date Activated Date Inactivated Comments 06/05/2020 2:40 PM 06/08/2020 5:16 PM This order ref lects the patients wishes and were consensually agreed upon. Question Answer Comments Discussion of Advance Directives occurred with: Patient Does the patient have a Living Will? No Does the patient have Health Care Power of Attor mauro? No Care Teams Delivery Analyst Relationship Specialty Start Date End Date Jasmin Cline MD [place] [address] [address] [address] PCP - General Internal Medicine 05/20/20 documented as of this encounter"
--- NOTE | 2024-07-31 14:31 | Operative Report ---
PG Post Operative Report Pre & Post Diagnosis Operation Date: 07/31/24 12:00 Pre-Op Diagnosis: Left Knee Osteoarthritis Post-Op Diagnosis: Left Knee Osteoarthritis I identified the patient and participated in the time-out.: Yes Procedure Operation Date: 07/31/24 12:00 Actual Procedures p Left Total Knee Arthroplasty(Left) - Derrell Moncada DO Surgeon Derrell Moncada DO Detective Derrell Flannery PA-C Estimated Blood Loss 30 Findings Consistent with Post-Op Diagnosis Specimens Left femoral and tibial bone Description of Procedure Implants used: I used a Demetria Persona total knee arthroplasty system with a size 7 PRK PS femur with a 75 mm stem extension, E tibia with a 30 mm stem extension, 31 patella, and a size 14 CPS polyethylene bearing. All components were cemented in place with Biomet cement. Lilian arrived [facility] for the above procedure. She was seen in the preoperative holding area and the operative extremity was identified and signed. She was given a preoperative antibiotic, TXA, and an adductor nerve block. She was taken back to the operating room and laid on the table in supine position. She was given general anesthesia. The operative knee was then prepped and draped in sterile fashion. A timeout was done, and the patient and the operative extremity was properly identified. A midline incision was made directly over the patella. Dissection was taken down to the extensor mechanism. A subvastus arthrotomy was used. The medial retinaculum was released and the fat pad was mostly excised. The knee was flexed and the ACL, PCL, and meniscus were removed. A drill was sent down the center of the femoral canal followed by an intramedullary vicente. Off that vicente a distal femoral cutting block was placed. 9 mm was resected off the distal femur at 5 of valgus. A posterior referencing AP sizing guide was then placed on the distal femur. The femur measured to be a size 7. 2 drill holes were placed in 3 of external rotation. A 4-in-1 cutting block was then impacted into place. Anterior, posterior, and chamfer cuts were then made. During the femoral resection, the bone quality was so poor that the anterior cortex collapsed into the canal. The bone quality was poor and off that I felt it was best to do a stem extension. The proximal tibia was then e xposed. An external tibial alignment guide was placed. A tibial cut guide was then anchored in place and the proximal tibia was then resected. The posterior aspect of the knee was then opened up and any additional meniscus fragments and osteophytes were removed. The tibia measured to be a size E. The tibial plate was then placed in the appropriate rotation and the tibia was drilled and punche d. Trial components were then placed. I used a size 14 CPS polyethylene insert. The knee was brought through a full range of motion and felt to be stable. The peg holes for the femoral component were then drilled. The patella was then everted and 9 mm was resected off the posterior aspect of the patella. The patella measured to be a size 31 oval. 3 peg holes were then drilled. A trial patella was placed. The knee was once again brought through a full range of motion and felt to be stable. Trial components were then removed. The surrounding soft tissues were injected with 100 cc of an orthopedic pain control cocktail. All components were then cemented into place with Biomet cement. The final polyethylene insert was then snapped into place. Once cement was dry the tourniquet was deflated. Hemostasis was obtained. A dilute betadyne lavage was then done for 3 minutes. The joint was then irrigated with normal saline solution. The subvastus arthrotomy was then closed with #1 Vicryl suture. The skin was closed with 2-0 Vicryl, 3-0V lock suture, and slim. A soft compressive dressing was placed. She was then transferred to a hospital bed and taken to the postanesthesia care unit in stable condition. She tolerated the procedure well. Derrell Flannery PA-C, was present for the entire procedure. He was critical for patient positioning, prepping, draping, retraction exposure, wound closure and application of sterile dressing. I attest to the content of the Intraoperative Record and any orders documented therein. Any exceptions are noted below.
--- NOTE | 2024-07-31 14:49 | XRay Report ---
TWO VIEWS LEFT KNEE CLINICAL HISTORY: Postoperative examination. FINDINGS: AP and crosstable lateral portable views of the left knee are obtained. A left knee arthrop lasty is in near anatomic alignment. There has been undersurface remodeling of the patella. There is a long femoral stem. No acute fracture is seen. There are expected postoperative changes around the k nee including skin clips, soft tissue edema, and subcutaneous gas. Soft tissue calcifications are see n in the upper calf. IMPRESSION: Expected postoperative changes status post left knee arthroplasty. No acute fracture is s een. ACT 112: Negative or not required by law. Electronically signed by: Guy Marcial M.D. 07/31/2024 2:47 PM
[2024-07-31] MEDS ORDERED: MAGNESIUM HYDROXIDE SUSP 30 ML UDC PO PRN (15:02)
[2024-07-31] MEDS ORDERED: predniSONE 10 MG TABLET PO PRN (15:02)
[2024-07-31] MEDS ORDERED: ONDANSETRON 4 MG OD TAB PO PRN (15:02)
[2024-07-31] MEDS ORDERED: bisacodyL 10 MG SUPP PR PRN (15:02)
[2024-07-31] MEDS ORDERED: METOCLOPRAMIDE HCL INJ 5 MG/ML 2 ML VIAL IV PRN (15:02)
[2024-07-31] MEDS ORDERED: NYSTATIN POWDER 15GM BTL EXT PRN (15:02)
[2024-07-31] MEDS ORDERED: LORATADINE 10 MG TAB PO PRN (15:02)
[2024-07-31] MEDS ORDERED: NALOXONE HCL 0.4 MG/1 ML VIAL/CARP IV PRN (15:02)
[2024-07-31] MEDS ORDERED: PHARMACY GLYCEMIC MGMT CONSULT PRN (15:02)
[2024-07-31] MEDS ORDERED: oxyCODONE HCL IR 5 MG TAB (IMMEDIATE RELEASE) PO PRN (15:02)
[2024-07-31] MEDS ORDERED: HYDROmorphone INJ 0.5 MG/0.5 ML SYR IV PRN (15:02)
--- NOTE | 2024-07-31 15:17 | Anesthesiology Progress Note ---
Date of Service July 31, 2024 Anesthesia Post Procedure Vital Signs Vital Signs: Temp Pulse Pulse Resp BP Pulse Ox O2 Del Method 07/31/24 15:10 36.9 C 81 16 123/76 92 Room Air 07/31/24 14:45 37.1 C 81 16 113/63 92 Room Air 07/31/24 14:35 80 17 138/64 95 Oxymask 07/31/24 14:25 82 17 112/79 97 Oxymask 07/31/24 14:15 36.2 C L 83 16 127/70 95 Oxymask 07/31/24 10:45 36.5 C 80 20 120/56 L 98 Room Air O2 Flow Rate 07/31/24 15:10 07/31/24 14:45 07/31/24 14:35 6 07/31/24 14:25 6 07/31/24 14:15 6 07/31/24 10:45 Transfer of Care Handoff Completed per policy Notes Mental Status: alert / awake / arousable and participated in evaluation Patient Amnestic to Procedure: Yes Nausea / Vomiting: adequately controlled Pain: adequately controlled Airway Patency, RR, SpO2: stable & adequate BP & HR: stable & adequate Hydration State: stable & adequate Anesthetic Complications: no major complications apparent and Pt Satisfied with anesthetic care
[2024-07-31] MEDS: SODIUM CHLORIDE 0.9% 1,000 ML IV SCH (15:18)
[2024-07-31] MEDS ORDERED: GLUCAGON FOR INJ 1 MG VIAL SQ PRN (15:45)
[2024-07-31] MEDS ORDERED: GLUCOSE 10 TAB/TUBE PO PRN (15:45)
[2024-07-31] MEDS ORDERED: GLUCOSE 40% GEL 15 GM TUBE PO PRN (15:45)
[2024-07-31] MEDS ORDERED: DEXTROSE 50% 50 ML SYRINGE IV PRN (15:45)
[2024-07-31] MEDS ORDERED: CARBOHYDRATES FOR HYPOGLYCEMIA PO PRN (15:45)
[2024-07-31] MEDS: INSULIN ASPART PER UNIT CHARGE SC SCH (17:16)
[2024-07-31] MEDS: SPIRONOLACTONE 25 MG TAB PO SCH (17:22)
[2024-07-31] MEDS: DOCUSATE SODIUM 100 MG CAP PO SCH (20:23)
[2024-07-31] MEDS: SENNA 8.6 MG TAB PO SCH (20:23)
[2024-07-31] MEDS: ASPIRIN 81 MG ECTAB PO SCH (20:23)
[2024-07-31] MEDS: METHENAMINE HIPPURATE 1 GM TAB PO SCH (20:24)
[2024-07-31] MEDS: METOPROLOL SUCC 25MG EXT REL TAB PO SCH (20:24)
[2024-07-31] MEDS: ceFAZolin 2000MG 2,000 MG/15 ML SYR IV SCH (20:25)
[2024-07-31] MEDS ORDERED: LANTUS PER UNIT CHARGE SC SCH (21:00)
[2024-07-31] MEDS: LANTUS PER UNIT CHARGE SC SCH (21:11)
[2024-08-01] MEDS: INSULIN ASPART PER UNIT CHARGE SC SCH (00:06)
--- NOTE | 2024-08-01 06:55 | Orthopedic Progress Note ---
Date of Service August 01, 2024 Assessment & Plan (1) Status post left knee replacement: Overall she is doing very well. She is not having much pain in the left knee. She will be seen by physical therapy today for ambulation and range of motion exercises. The nursing staff can change her dressing after physical therapy. She can be discharged to home later today. She is on aspirin for DVT prophylaxis. She will follow-up orthopedics in 2 weeks. Ana Quintana was seen and examined at bedside this morning. Overall she is doing very well. She is not having much pain in the left knee. She has been up and ambulating to the bedside commode. She has no other complaints.. Review of Systems All systems reviewed & are unremarkable except as noted in HPI & below. Physical Exam On physical examination of the left knee, the dressing is clean and dry. Her leg is out full extension. She has active dorsiflexion plantarflexion of her left ankle.. Results & Data Results & Data Laboratory Results . Diagnostic Findings Postoperative x-rays of the left knee show the prosthesis to be in anatomic alignment without any evidence of fracture complication, or loosening.. PG Care Time/CCT Total # of Minutes Spent Total Time Spent with Patient: Total time spent is greater than 50% in coordination of care (as documented) at patient's floor/unit and/or counseling patient: Coding Level of Care Code 44295 Post Operative Follow-Up Diagnoses Status post left knee replacement Z96.652
--- NOTE | 2024-08-01 06:56 | Discharge Summary ---
Date of Service August 01, 2024 Admission HPI (Per Admitting) Lilian is a pleasant 74-year-old female who I did a right knee replacement on in 2018. She has done well with that. Unfortunately, she is now dealing with increasing left knee pain. She has known osteoarthritis of her left knee. She has been seeing Dr. Harmon in [place] and he has been giving her injections. Unfortunately, the injections are no longer helping. That she had a conservative treatment, she has elected to proceed with a left total knee arthroplasty. Admission Exam (Per Admitting) On physical examination of the right knee, she does have a varus deformity. She has tenderness palpation of the distal medial femoral condyle and over the medial joint line.. Principal Diagnosis Same as "Discharge Diagnosis" noted below under Discharge Instructions. Discharge Exam On physical examination of the left knee, the dressing is clean and dry. Her leg is out full extension. She has active dorsiflexion plantarflexion of her left ankle.. Discharge Data Procedures Performed Operation Date: 07/31/24 12:00 Actual Procedures p Left Total Knee Arthroplasty(Left) - Derrell Moncada DO Ordered Studies 07/31/24 05:00 US - OR guided needle placemen Routine Hospital Course (1) Status post left knee replacement: On July 31, 2024 Lilian arrived at [facility] and underwent a left knee replacement without complication. She had a general anesthetic. Postoperatively she was started on aspirin for DVT prophylaxis and transferred to the general orthopedic floors. Her hospital course was uneventful. On postop day #1, her vital signs were stable and her pain was well-controlled. She was able to participate well with physical therapy doing ambulation and range of motion exercises. She was then discharged to home. She will follow-up with orthopedics in 2 weeks. PG Care Time/CCT Total # of Minutes Spent Total Time Spent with Patient: Total time spent is greater than 50% in coordination of care (as documented) at patient's floor/unit and/or counseling patient: Discharge Plan Discharge Items Patient Disposition: Home - Self-Care Reason For Visit: Left Knee Degenerative Joint Disease Discharge Diagnosis: Left knee replacement Activity: Per Instructions section Non-emergency contact: Surgeon Call non-emergency contact if: your wound has increased redness and your wound has increased drainage Follow-up/Referrals: Jasmin Cline M.D. [Primary Care Provider] - Diet: Regular Addtl Attending Provider Instructions: Activity and Therapy Recommendations: * If you are using [facility] then therapy will be provided at your home until they feel you have accomplished all of your goals. * If you are using [facility] then Physical Therapy will be provided until they feel you are ready to start Outpatient Physical Therapy. * If you are not using home therapy then Outpatient Physical Therapy should start about 3-5 days from your day of surgery. Therapy will last about 6-10 weeks * It is important not to put a pillow under your knee when you are relaxing or sleeping. It is just as important to make sure you are getting your knee perfectly straight as it is to regain your knee bend. * You were shown a series of exercises in the hospital. Do these exercises three times each day including the exercises you were shown in physical therapy. * Get up and walk several times each day. For the first four weeks, try not to stand or walk for more than one hour at a time. If you do stand or walk for more than one hour, you will not hurt anything, but your leg will likely swell. * As you feel comfortable, you may change from the walker or crutches to a cane and then to independent walking. Medications: * Narcotic You will likely be sent home from the hospital with a prescription for the narcotic pain medication that worked best throughout your stay. * Cefadroxil -take the antibiotic twice a day for 10 days to help prevent infection. * Aspirin Most patients will be required to take Aspirin 81mg twice a day for 6 weeks after surgery. This is obtained [id number] and a prescription is not necessary. * Other medications may be prescribed for specific circumstances. If you have any questions, please call the office at . * Resume previous home medications unless otherwise instructed TEDs/Elastic Stockings: The white elastic stockings help limit swelling and prevent blood clots from forming in your legs.~ The more you wear them, the more they work. Wear them for six weeks. Dressing Care: The dressing can be changed after physical therapy on postop day #1. Daily dry dressing changes for a few days, especially if the incision is still draining some. If the incision is not draining then you may leave the slim open to air. If there is a little bit of drainage or if the slim are getting stuck on your clothing then cover the incision with a dry dressing. The slim will be removed at your 2 week follow-up appointment. Showering: You may shower 5 days from the day of surgery as long as the incision is no longer draining. You may shower with the slim exposed. Let soapy water run over the slim and pat them dry. Do not scrub or soak the incision. Diet: You may resume your previous diet. Things To Watch For: * Drainage from the incision site that occurs more than one week after your surgery. * Increased redness at the incision site. * Fever above 102 degrees Fahrenheit. * Unusual chest pain or shortness of breath. * Call [facility] at with any of the above problems Follow-Up Visit: Follow-up with Dr. Moncada's PA (Derrell Flannery) 2-3 weeks after your day of surgery. He will remove your slim and answer any questions. If you have any additional questions or concerns, Dr Moncada is usually in the office at the same time and will be available An appointment was probably scheduled when you signed-up for surgery in the office. If you have any questions call Office Instructions: More detailed instructions as well as Frequently Asked Questions were provided in a folder by our office when you signed-up for surgery. Please review these instructions when you get home. If you have any further questions or concerns, please feel free to call the office at [phone] Pending Studies at Discharge: No Stand-Alone Forms: [facility] Medications and DC Order Prescriptions: New oxycodone 5 mg Tablet 5 mg PO Q4H PRN (Reason: pain) Qty: 30 0RF cefadroxil 500 mg capsule 500 mg PO BID 10 Days Qty: 20 0RF Continued prednisone 10 mg Tablet 10 mg PO DIRECTED PRN (Reason: shoulder bursitis) atorvastatin 20 mg Tablet 20 mg PO QAM methenamine hippurate 1 gram Tablet 1 g PO BID ascorbic acid (vitamin C) [Vitamin C] 500 mg Tablet 500 mg PO QAM lisinopril 10 mg Tablet 10 mg PO QAM omeprazole 20 mg Capsule,Delayed Release(Dr/Ec) 20 mg PO QAM furosemide 20 mg Tablet 20 mg PO QAM metoprolol succinate 25 mg Tablet Extended Release 24 Hr 25 mg PO BID nystatin 100,000 unit/gram Powder 1 applic TOPICAL DAILY PRN (Reason: yeast infections) ondansetron 4 mg Tablet,Disintegrating 4 mg PO Q6H PRN (Reason: n/v) loratadine 10 mg Tablet 10 mg PO QAM PRN (Reason: seasonal allergies) insulin lispro [Humalog KwikPen Insulin] 100 unit/mL Insulin Pen 1 sliding scale dose SUBCUT USEASDIRECTD insulin glargine [Basaglar KwikPen U-100 Insulin] 100 unit/mL (3 mL) Insulin Pen 60 unit SUBCUT HS cholecalciferol (vitamin D3) [Vitamin D3] 25 mcg (1,000 unit) Tablet,Chewable 25 mcg PO QAM spironolactone 25 mg Tablet 25 mg PO BID Trulicity 0.75 mg/0.5 mL Pen Injector 0.75 mg SUBCUT WK Changed aspirin 81 mg Tablet,Delayed Release (Dr/Ec) 81 mg PO BID 42 Days Qty: 0 0RF Discontinued cephalexin 250 mg Tablet 250 mg PO QAM Discharge Orders: Discharge Order (Routine); Ordered 08/01/24 Ordered By: Derrell Moncada Admission Data Admit Date/Time: 07/31/24 14:15 Attending Provider: Derrell Moncada Admit Provider: Derrell Moncada Primary Care Provider: Jasmin Cline Other Providers: [facility],Home Healthcare
[2024-08-01] MEDS: PANTOprazole 40 MG TAB PO SCH (09:13)
[2024-08-01] MEDS: MULTIVITAMIN TAB PO SCH (09:13)
[2024-08-01] MEDS: lisinopril 10 MG TAB PO SCH (09:15)
[2024-08-01] MEDS: FUROSEMIDE 20 MG TAB PO SCH (09:15)
[2024-08-01 09:32] LABS: Estimated Average Glucose 137 mg/dl; Hemoglobin A1C 6.4 % (4.5-5.6)
[2024-08-01] MEDS: ATORVASTATIN 20 MG TAB PO SCH (10:03)
== END 2024-08-01 10:37 | disposition home or self-care (01) ==
LOC: ASU 09:21 → 3W 09:21